=== PATIENT | male | born 1940 | race Caucasian/White ===

== ENCOUNTER 2017-10-19 15:37 | Inpatient (IN) | payer MEDICARE, BC ==
[2017-10-19] MEDS ORDERED: NS 0.9% 1000 ML*IV.FLUID IV ONE (16:11)
[2017-10-19] MEDS ORDERED: cefTRIAXone(*) 1 GM in NS 0.9% 50 ML* 50 ML IVPB ONE (16:14)
--- NOTE | 2017-10-19 17:25 | RAD ---
Indication: Generalized weakness. Nausea and vomiting since yesterday. Comparison: No relevant prior exams available on the [facility] P[facility] for comparison. Technique: Noncontrast CT vertex of skull through foramen magnum. Report: Unremarkable cerebral sulci. Mild prominence of the ventricles and cerebellar fissures reflecting involutional change. Decreased density in the periventricular and subcortical white matter while non-specific is most likely due to chronic microangiopathy. Negative for barajas matter white matter obscuration, intra or extra-axial hemorrhage, or mass effect. Patent basal cisterns. Unremarkable partially visualized orbital contents. No suspicious calvarial or skull base lesion evident. Clear partially visualized paranasal sinuses and partially visualized mastoid air spaces. Unremarkable scalp. IMPRESSION: Mild involutional change and stigmata of chronic small vessel ischemic disease. No acute intracranial process evident.
--- NOTE | 2017-10-19 17:37 | RAD ---
Indication: Weakness, nausea, vomiting since yesterday. Comparison: February 04, 2017 Technique: Sitting AP chest 1715 hours Report: Elevated lung volumes and mild prominence of interstitial markings. No alveolar consolidation concerning for pneumonia, pleural effusion, or pneumothorax. Negative for cardiomegaly. Unremarkable central pulmonary vasculature. Moderately tortuous descending thoracic aorta. Negative for free air beneath the diaphragm. IMPRESSION: Stigmata of obstructive lung disease. No acute pulmonary or cardiac process evident.
[2017-10-19 18:27] LABS: ABS Basophils 0 10^3/ul (0-0.2); ABS Eosinophils 0 10^3/ul (0-0.6); ABS Lymphocytes 0.2 10^3/ul (1.0-4.8); ABS Monocytes 0.2 10^3/ul (0-0.8); ABS Neutrophils 2.9 10^3/ul (1.5-7.7); ABS Nucleated RBC 0 10^3/ul; Eosinophil % 0 % (0-6); Hematocrit 39 % (42-52); Hemoglobin 13.2 g/dl (14.0-18.0); Lymphocyte % 5.1 % (25-47); Mean Corpuscular HGB Conc 34 g/dl (31-36); Mean Corpuscular Hemoglobin 32 pg (27-31); Mean Corpuscular Volume 92 fL (80-94); Mean Platelet Volume 8.2 um3 (7.4-10.4); Nucleated Red Blood Cells % 0; Platelet Count 101 10^3/ul (150-450); Red Cell Distribution Width 14 % (10.5-15); White Blood Count 3.2 10^3/ul (3.5-10.8)
[2017-10-19 18:33] LABS: INR 1.05 (0.77-1.02)
[2017-10-19 18:44] LABS: EGFR Non-African American 60.9 (>60)
[2017-10-19] MEDS ORDERED: Ketorolac INJ* 30 MG/ML 1 ML VIAL IV ONE (20:02)
[2017-10-19 20:32] LABS: Urine Appearance Clear; Urine Blood Negative (Negative); Urine Color Yellow; Urine Ketones Trace (Negative); Urine Protein Negative (Negative); Urine Specific Gravity 1.023 (1.010-1.030); Urine Urobilinogen Negative (Negative)
[2017-10-19] MEDS ORDERED: Ondansetron INJ* 2 MG/ML VIAL IV PRN (20:35)
[2017-10-19] MEDS ORDERED: Calcium Gluconate INJ* 2 GM in NS 0.9% 100 ML* 100 ML IV ONE (20:35)
[2017-10-19] MEDS ORDERED: NS 0.9% 1000 ML* 1,000 ML IV SCH (20:45)
[2017-10-19] MEDS ORDERED: NS 0.9% 1000 ML* 1,000 ML IV ONE (21:14)
[2017-10-19] MEDS ORDERED: Acetaminophen TAB* 325 MG PO ONE (21:14)
[2017-10-19] MEDS ORDERED: Acetaminophen TAB* 325 MG ONE (21:16)
--- NOTE | 2017-10-19 21:22 | ED ---
Nikolas Tomas Stephanie, scribed for Lalit Henry MD on 10/19/17 at 1636 . Complex/Multi-Sys Presentation - HPI Summary HPI Summary: The pt is a 77 y/o M BIBA to the ED with c/o weakness that began last night. Symptoms include RO, unsteady gait, diaphoresis and nausea. The pt urinated on his bed last night. He denies urinary incontinence and states he just couldnt get out of bed to pee. He denies vomiting, fever, neck pain and chills. The pt was bitten by 3 deer ticks 10 days ago: 2 on his chest and 1 on posterior R thigh. The pt has hx of Lyme disease last year and states his symptoms remind him of his Lyme disease last year. - History Of Current Complaint Chief Complaint: EDNauseaVomitDiarrh Time Seen by Provider: 10/19/17 15:58 Hx Obtained From: Patient Onset/Duration: Gradual Onset, Lasting Days - 1, Still Present Timing: Constant Severity Currently: Severe Associated Signs And Symptoms: Positive: Weakness, Headache, Nausea. Negative: Vomiting - Allergies/Home Medications Allergies/Adverse Reactions: Allergies Allergy/AdvReac Type Severity Reaction Status Date / Time No Known Allergies Allergy Verified 06/28/17 12:08 Home Medications: Home Medications Atorvastatin* [Lipitor*] 10 mg PO DAILY 10/19/17 [History Confirmed 10/19/17] BuPROPion XL* [Bupropion XL*] 300 mg PO QAM 10/19/17 [History Confirmed 10/19/17 ] Citalopram TAB* [CeleXA TAB*] 20 mg PO DAILY 10/19/17 [History Confirmed ] GuaiFENesin DM* [Robitussin DM*] 5 ml PO Q12H PRN 10/19/17 [History Confirmed ] Ibuprofen TAB* [Motrin TAB* 600 MG] 600 mg PO TID WITH MEALS PRN 10/19/17 [ History Confirmed 10/19/17] Multivitamins/Minerals TAB* [Theragran/minerals TAB*] 1 tab PO DAILY 10/19/17 [ History Confirmed 10/19/17] Mcnabb-3 Fatty Acids (Nf) [Fish Oil (NF)] 1,000 mg PO DAILY 10/19/17 [History Confirmed 10/19/17] PMH/Surg Hx/FS Hx/Imm Hx Endocrine/Hematology History: Denies: Hx Bone Marrow Disease, Hx Diabetes, Hx Thyroid Disease, Hx Anemia Cardiovascular History: Denies: Hx Angina, Hx Cardiomegaly, Hx Congestive Heart Failure, Hx Coronary Artery Disease, Hx Hypertension, Hx Pacemaker/ICD, Hx Peripheral Vascular Disease, Hx Rheumatic Fever, Hx Valvular Heart Disease, Other Cardiovascular Problems/Disorders Respiratory History: Denies: Hx Asthma, Hx Pulmonary Edema, Hx Pulmonary Embolism, Hx Sleep Apnea , Other Respiratory Problems/Disorders GI History: Denies: Hx Cirrhosis, Hx Crohn's Disease, Hx Gastroesophageal Reflux Disease , Hx Hiatal Hernia, Hx Irritable Bowel, Hx Jaundice, Hx Ulcer, Other GI Disorders History: Reports: Hx Kidney Stones - hx, Other Problems/Disorders - slow urine stream @ night Denies: Hx Kidney Infection, Hx Renal Disease Musculoskeletal History: Denies: Hx Arthritis, Hx Bursitis, Hx Tendonitis, Other Musculoskeletal History Sensory History: Reports: Hx Contacts or Glasses Denies: Hx Cataracts, Hx Glaucoma, Hx Hearing Aid Opthamlomology History: Reports: Hx Contacts or Glasses Denies: Hx Cataracts, Hx Glaucoma Neurological History: Reports: Hx Headaches Denies: Hx Migraine, Hx Seizures, Other Neuro Impairments/Disorders Psychiatric History: Denies: Hx Anxiety, Hx Depression, Hx Panic Disorder - Cancer History Hx Chemotherapy: No - Surgical History Surgery Procedure, Year, and Place: Tonsils. KIDNEY STONES. BILATERAL CATARACTS Hx Anesthesia Reactions: No Infectious Disease History: No Infectious Disease History: Denies: Hx Hepatitis, Traveled Outside the [place] in Last 30 Days - Family History Known Family History: Negative: Renal Disease - Social History Occupation: Retired Lives: Assisted Living Alcohol Use: None Hx Substance Use: No Substance Use Type: Reports: None Hx Tobacco Use: No Smoking Status (MU): Never Smoked Tobacco Review of Systems Positive: Skin Diaphoresis. Negative: Fever, Chills Positive: Nausea. Negative: Vomiting Negative: incontinence Musculoskeletal: Negative - neck pain Neurological: Other - unsteady gait Positive: Headache, Weakness All Other Systems Reviewed And Are Negative: Yes Physical Exam - Summary Physical Exam Summary: General: Moderately ill-appearing, no pain distress Skin: warm, color reflects adequate perfusion, dry, 2 tick bites on chest, one tick bite now scabbed on R posterior LE, no rash Head: normal Eyes: EOMI, BALDEV ENT: oral mucosa dry Neck: supple, nontender Respiratory: CTA, breath sounds present Cardiovascular: RRR Abdomen: soft, nontender Bowel: present Musculoskeletal: normal, strength/ROM intact Neurological: normal, sensory/motor intact, A&O x3, no focal or neurological deficit Psychological: affect/mood appropriate Triage Information Reviewed: Yes Vital Signs On Initial Exam: Initial Vitals Temp Pulse Resp BP Pulse Ox 99.8 F 64 12 99/44 90 10/19/17 15:48 10/19/17 15:48 10/19/17 15:48 10/19/17 15:48 10/19/17 15:48 Vital Signs Reviewed: Yes Diagnostics - Vital Signs Vital Signs Temp Pulse Resp BP Pulse Ox 10/19/17 15:48 99.8 F 64 12 99/44 90 - Laboratory Lab Results: Lab Results 10/19/17 10/19/17 10/19/17 Range/Units 18:17 18:17 18:18 WBC 3.2 L (3.5-10.8) 10^3/ul RBC 4.20 (4.0-5.4) 10^6/ul Hgb 13.2 L (14.0-18.0) g/dl Hct 39 L (42-52) % MCV 92 (80-94) fL MCH 32 H (27-31) pg MCHC 34 (31-36) g/dl RDW 14 (10.5-15) % Plt Count 101 L (150-450) 10^3/ul MPV 8.2 (7.4-10.4) um3 Neut % (Auto) 88.0 H (38-83) % Lymph % (Auto) 5.1 L (25-47) % [place] % (Auto) 6.6 (0-7) % Eos % (Auto) 0 (0-6) % Baso % (Auto) 0.3 (0-2) % Absolute Neuts (auto) 2.9 (1.5-7.7) 10^3/ul Absolute Lymphs (auto) 0.2 L (1.0-4.8) 10^3/ul Absolute Monos (auto) 0.2 (0-0.8) 10^3/ul Absolute Eos (auto) 0 (0-0.6) 10^3/ul Absolute Basos (auto) 0 (0-0.2) 10^3/ul Absolute Nucleated RBC 0 10^3/ul Nucleated RBC % 0 INR (Anticoag Therapy) 1.05 H (0.77-1.02) APTT 24.1 L (26.0-36.3) seconds Sodium (139-145) mmol/L Potassium (3.5-5.0) mmol/L Chloride (101-111) mmol/L Carbon Dioxide (22-32) mmol/L Anion Gap (2-11) mmol/L BUN (6-24) mg/dL Creatinine (0.67-1.17) mg/dL Est GFR ( Amer) (>60) Est GFR (Non-Af Amer) (>60) BUN/Creatinine Ratio (8-20) Glucose (70-100) mg/dL Lactic Acid (0.5-2.0) mmol/L Calcium (8.6-10.3) mg/dL Total Bilirubin (0.2-1.0) mg/dL AST (13-39) U/L ALT (7-52) U/L Alkaline Phosphatase (34-104) U/L Troponin I (<0.04) ng/mL C-Reactive Protein (< 5.00) mg/L B-Natriuretic Peptide ( - 100) pg/mL Total Protein (6.4-8.9) g/dL Albumin (3.2-5.2) g/dL Globulin (2-4) g/dL Albumin/Globulin Ratio (1-3) Lipase (11.0-82.0) U/L Procalcitonin 0.2 (<0.6) ng/mL Urine Color Urine Appearance Urine pH (5-9) Ur Specific Lester (1.010-1.030) Urine Protein (Negative) Urine Ketones (Negative) Urine Blood (Negative) Urine Nitrate (Negative) Urine Bilirubin (Negative) Urine Urobilinogen (Negative) Ur Leukocyte Esterase (Negative) Urine WBC (Auto) (Absent) Urine RBC (Auto) (Absent) Urine Bacteria (Absent) Urine Glucose (Negative) 10/19/17 10/19/17 10/19/17 Range/Units 18:18 18:18 18:18 WBC (3.5-10.8) 10^3/ul RBC (4.0-5.4) 10^6/ul Hgb (14.0-18.0) g/dl Hct (42-52) % MCV (80-94) fL MCH (27-31) pg MCHC (31-36) g/dl RDW (10.5-15) % Plt Count (150-450) 10^3/ul MPV (7.4-10.4) um3 Neut % (Auto) (38-83) % Lymph % (Auto) (25-47) % [place] % (Auto) (0-7) % Eos % (Auto) (0-6) % Baso % (Auto) (0-2) % Absolute Neuts (auto) (1.5-7.7) 10^3/ul Absolute Lymphs (auto) (1.0-4.8) 10^3/ul Absolute Monos (auto) (0-0.8) 10^3/ul Absolute Eos (auto) (0-0.6) 10^3/ul Absolute Basos (auto) (0-0.2) 10^3/ul Absolute Nucleated RBC 10^3/ul Nucleated RBC % INR (Anticoag Therapy) (0.77-1.02) APTT (26.0-36.3) seconds Sodium 137 L (139-145) mmol/L Potassium 3.7 (3.5-5.0) mmol/L Chloride 105 (101-111) mmol/L Carbon Dioxide 25 (22-32) mmol/L Anion Gap 7 (2-11) mmol/L BUN 15 (6-24) mg/dL Creatinine 1.16 (0.67-1.17) mg/dL Est GFR ( Amer) 78.3 (>60) Est GFR (Non-Af Amer) 60.9 (>60) BUN/Creatinine Ratio 12.9 (8-20) Glucose 116 H (70-100) mg/dL Lactic Acid 0.8 (0.5-2.0) mmol/L Calcium 7.7 L (8.6-10.3) mg/dL Total Bilirubin 0.70 (0.2-1.0) mg/dL AST 12 L (13-39) U/L ALT 11 (7-52) U/L Alkaline Phosphatase 34 (34-104) U/L Troponin I 0.01 (<0.04) ng/mL C-Reactive Protein 22.14 H (< 5.00) mg/L B-Natriuretic Peptide 121 H ( - 100) pg/mL Total Protein 5.3 L (6.4-8.9) g/dL Albumin 3.4 (3.2-5.2) g/dL Globulin 1.9 L (2-4) g/dL Albumin/Globulin Ratio 1.8 (1-3) Lipase 12 (11.0-82.0) U/L Procalcitonin (<0.6) ng/mL Urine Color Urine Appearance Urine pH (5-9) Ur Specific Lester (1.010-1.030) Urine Protein (Negative) Urine Ketones (Negative) Urine Blood (Negative) Urine Nitrate (Negative) Urine Bilirubin (Negative) Urine Urobilinogen (Negative) Ur Leukocyte Esterase (Negative) Urine WBC (Auto) (Absent) Urine RBC (Auto) (Absent) Urine Bacteria (Absent) Urine Glucose (Negative) 10/19/17 10/19/17 Range/Units 20:00 20:15 WBC (3.5-10.8) 10^3/ul RBC (4.0-5.4) 10^6/ul Hgb (14.0-18.0) g/dl Hct (42-52) % MCV (80-94) fL MCH (27-31) pg MCHC (31-36) g/dl RDW (10.5-15) % Plt Count (150-450) 10^3/ul MPV (7.4-10.4) um3 Neut % (Auto) (38-83) % Lymph % (Auto) (25-47) % [place] % (Auto) (0-7) % Eos % (Auto) (0-6) % Baso % (Auto) (0-2) % Absolute Neuts (auto) (1.5-7.7) 10^3/ul Absolute Lymphs (auto) (1.0-4.8) 10^3/ul Absolute Monos (auto) (0-0.8) 10^3/ul Absolute Eos (auto) (0-0.6) 10^3/ul Absolute Basos (auto) (0-0.2) 10^3/ul Absolute Nucleated RBC 10^3/ul Nucleated RBC % INR (Anticoag Therapy) (0.77-1.02) APTT (26.0-36.3) seconds Sodium (139-145) mmol/L Potassium (3.5-5.0) mmol/L Chloride (101-111) mmol/L Carbon Dioxide (22-32) mmol/L Anion Gap (2-11) mmol/L BUN (6-24) mg/dL Creatinine (0.67-1.17) mg/dL Est GFR ( Amer) (>60) Est GFR (Non-Af Amer) (>60) BUN/Creatinine Ratio (8-20) Glucose (70-100) mg/dL Lactic Acid 0.9 (0.5-2.0) mmol/L Calcium (8.6-10.3) mg/dL Total Bilirubin (0.2-1.0) mg/dL AST (13-39) U/L ALT (7-52) U/L Alkaline Phosphatase (34-104) U/L Troponin I (<0.04) ng/mL C-Reactive Protein (< 5.00) mg/L B-Natriuretic Peptide ( - 100) pg/mL Total Protein (6.4-8.9) g/dL Albumin (3.2-5.2) g/dL Globulin (2-4) g/dL Albumin/Globulin Ratio (1-3) Lipase (11.0-82.0) U/L Procalcitonin (<0.6) ng/mL Urine Color Yellow Urine Appearance Clear Urine pH 6.0 (5-9) Ur Specific Lester 1.023 (1.010-1.030) Urine Protein Negative (Negative) Urine Ketones Trace A (Negative) Urine Blood Negative (Negative) Urine Nitrate Negative (Negative) Urine Bilirubin Negative (Negative) Urine Urobilinogen Negative (Negative) Ur Leukocyte Esterase Trace A (Negative) Urine WBC (Auto) Trace(0-5/hpf) (Absent) Urine RBC (Auto) Trace(0-2/hpf) (Absent) Urine Bacteria Absent (Absent) Urine Glucose Negative (Negative) Result Diagrams: 10/19/17 18:17 10/19/17 18:18 Lab Statement: Any lab studies that have been ordered have been reviewed, and results considered in the medical decision making process. - Radiology CXR Xray Interpretation: No Acute Changes Radiology Interpretation Completed By: Radiologist - Stigmata of obstructive lung disease. No acute pulmonary or cardiac process evident. ED physician has reviewed this report. - CT Brain CT Interpretation: No Acute Changes CT Interpretation Completed By: Radiologist - Mild involutional change and stigmata of chronic small vessel ischemic disease. No acute intracranial process evident. ED physician has reviewed this report. - EKG 16:34 Cardiac Rate: NL EKG Rhythm: Sinus Rhythm - [address] Segment: Normal Ectopy: None EKG Interpretation: RBBB Complex Multi-Symp Course/Dx Course Of Treatment: ADMIT HOSPITALIST - Diagnoses Provider Diagnoses: Febrile illness, Sepsis - Physician Notifications Discussed Care Of Patient With: Almita Finney Time Discussed With Above Provider: 19:54 Instructed by Provider To: Admit As Inpatient - Critical Care Time Critical Care Time: 30-74 min Discharge - Sign-Out/Discharge Documenting (check all that apply): Discharge/Admit/Transfer - Discharge Plan Condition: Fair Disposition: [facility]MITTED TO [facility] - Billing Disposition and Condition Condition: FAIR [place] [place] The documentation as recorded by the Nikolas burton Stephanie accurately reflects the service I personally performed and the decisions made by me, Lalit Henry MD.
[2017-10-19] MEDS: DOXYcycline IV* 100 MG in NS 0.9% 250 ML* 250 ML IVPB SCH (23:26)
[2017-10-19] MEDS ORDERED: Magnesium Sulfate 2 GM IV* 2 GM/50 ML BAG IVPB ONE (23:39)
[2017-10-19] MEDS: Heparin VIAL(*) 5000 UNITS/ML VIAL (FIVE THOUSAND) SUBCUT SCH (23:50)
[2017-10-20 00:52] LABS: EGFR Non-African American 66.8 (>60)
[2017-10-20] MEDS ORDERED: Calcium Gluconate INJ* 1 GM in NS 0.9% 100 ML* 100 ML IVPB ONE (01:14)
[2017-10-20] MEDS ORDERED: PROCHLORPERAZINE INJ 5 MG/ML 2 ML VIAL ONE (05:38)
[2017-10-20] MEDS: PROCHLORPERAZINE INJ 5 MG/ML 2 ML VIAL IV PRN (05:40)
[2017-10-20] MEDS ORDERED: Ondansetron 40 MG VIAL* 2 MG/ML 20 ML VIAL IV PRN (06:00)
[2017-10-20] MEDS: Heparin VIAL(*) 5000 UNITS/ML VIAL (FIVE THOUSAND) SUBCUT SCH ×3 (06:02→20:18)
--- NOTE | 2017-10-20 06:42 | HP ---
CC: Dr. Lobo; Dr. Bourne * HISTORY AND PHYSICAL: DATE OF ADMISSION: 10/19/17 PRIMARY CARE PROVIDER: Dr. Lobo. ATTENDING PHYSICIAN WHILE IN THE HOSPITAL: Dr. Almita Finney * (report dictated by Damien Mack NP). CHIEF COMPLAINT: 1. Weakness. 2. Aching all over. HISTORY OF PRESENTING ILLNESS: Mr. Ramos is a 77-year-old male patient. He carries a history of depression, nephrolithiasis. He has had lyme disease in the past, hyperlipidemia and vertigo. He comes into the ER today. Since the last 24 hours, he developed progressive worsening weakness to the point where he could not get out of bed even to urinate. He was just too weak to get up. He had been having chills and fevers. He had been feeling nauseated. He did not vomit. He said he had lower abdominal discomfort near his bladder and up in the suprapubic area. He does admit to having chills. He denies any chest pain or shortness of breath. No URI symptoms. He says he has not noticed any rashes. He does admit to having 3 ticks on him about 10 days ago when he was clearing some property that he and his were able to remove. He has had again lyme in the past. He denies any visual disturbances. No headaches currently. He denies having any neck pain or neck stiffness. He came into the ER today. There was concern because he was noted to be leukopenic and his platelets were little low around 100,000. There was concern for possible underlying infection contributing to the weakness and we were asked to evaluate for admission. PAST MEDICAL HISTORY: Significant for: 1. Depression. 2. Nephrolithiasis. 3. Lyme disease. 4. Hyperlipidemia. 5. Vertigo. PAST SURGICAL HISTORY: The patient has had cataract extraction. HOME MEDICATIONS: Include: 1. Robitussin 5 cc every 12 hours as needed. 2. [place]-3 fatty acids 1000 mg p.o. daily. 3. Multivitamin 1 tablet daily. 4. Celexa 20 mg p.o. daily. 5. Bupropion 300 mg p.o. daily. 6. Ibuprofen 600 mg p.o. t.i.d. with meals as needed. 7. Lipitor 10 mg p.o. daily. ALLERGIES TO MEDICATIONS: Include no known drug allergies. FAMILY HISTORY: Mother had a history of breast cancer. Father had a history of heart disease. SOCIAL HISTORY: He does not smoke. He rarely drinks alcohol. Surrogate decision maker is his . REVIEW OF SYSTEMS: There is no documented fever. Does admit to having chills. He denies any significant weight change. There was no double vision. He denies having any ear discharge. There is no rhinorrhea. He denied any sore throat. No thyroid enlargement. Denies having any chest pain. There was no orthopnea. No nocturnal dyspnea. There was no abdominal pain. There was nausea. No vomiting. No dysuria. There was no frequency. No seizure. No loss of consciousness. No pruritus and no skin ulcerations. Review of 14 systems completed, all others negative. PHYSICAL EXAMINATION GENERAL: At this time, Mr. Ramos is a 77-year-old male patient. He is sitting in the ED stretcher. He does not appear to be in any acute distress. VITAL SIGNS: Blood pressure 109/60, pulse 75, respirations 24, O2 sat 94% on room air, temperature 99.8. HEENT: Head is atraumatic and normocephalic. Eyes: EOMs are intact. Sclerae are anicteric and not pale. Throat: Oral mucosa appears to be dry. No oropharyngeal erythema. NECK: Supple. LUNGS: Clear to auscultation bilaterally. No wheezes, rales, or rhonchi. HEART: Sounds S1, S2. Regular rate and rhythm. No murmurs, rubs, or gallops. ABDOMEN: Soft, flat, nontender. Bowel sounds were present. EXTREMITIES: Pulses were 2+ throughout. He is moving all 4 extremities with 5/ 5 strength. NEUROLOGICAL: He is awake, alert, he is oriented x3. Business Area Director were equal. Tongue midline. He had no gross focal deficits. SKIN: Intact. I did not appreciate any rashes. DIAGNOSTIC STUDIES/LABORATORY DATA: Today revealed WBC of 3.2, RBC of 4.20, hemoglobin of 13.2, hematocrit of 39, and platelet count of 101. His INR was 1.05, PTT of 24.1. Sodium is 137, potassium is 3.7, chloride 105, bicarb 25, BUN 15, creatinine 1.16, glucose 116, lactate 0.8, calcium 7.7. Total bili 0.7 , AST 12, ALT 11, alk phos 34. Troponin 0.04. CRP of 22. BNP 121. Albumin was 3.4. Lipase normal. Procalcitonin 0.2. Urine showed trace ketones, trace leukocyte esterase. He had a brain CT obtained today, impression: Mild involutional change and stigmata of chronic small vessel ischemic disease, no acute intracranial process evident. He had an EKG obtained today showing a normal sinus rhythm with a right bundle-branch block, rate of 72, no ST elevations or T-wave inversions. Last EKG I have is from 7 years ago showed a sinus bradycardia at a rate of 59, right bundle- branch block was not present at that point. Chest x -ray obtained today showed stigmata of obstructive lung disease. No acute pulmonary or cardiac process evident. Old medical records were reviewed. ASSESSMENT AND PLAN: Mr. Ramos is a 77-year-old male patient coming into the emergency department today with complaints of weakness, fatigue, found to be leukopenic and thrombocytopenic. We were asked to evaluate for admission. He will be admitted under observation status for: 1. Weakness. Again, I am concerned he might have underlying either viral infection or possibly lyme infection. Lyme serology has been sent. Blood cultures have been sent. He does have signs of systemic inflammatory response syndrome. His respiratory rates are in the mid 20s. In addition to this, he is leukopenic. So, he did get full 30 cc/kg fluid. I will go ahead and put him on doxycycline. We will get lyme serology, panculture him, check flu swab, and I did touch base with ID. For the time being, I will put him on doxycycline given the recent tick exposure. 2. Hypocalcemia. I am going to get an ionized calcium and then if this is low , I will replace and also will send off PTH, vitamin D, magnesium levels, calcitriol, amylase, phos as well. 3. Depression. Continue medications as prescribed. 4. Nephrolithiasis, not an active issue. 5. Hyperlipidemia. Continue statin therapy. 6. Vertigo. He is not having any active issues. We will continue to monitor. 7. DVT prophylaxis: He will be placed on heparin subcu. 8. Fluids, electrolytes, nutrition. He can have a regular diet. 9. Code status. Full code. TIME SPENT: Time spent on admission was 60 minutes; greater than half the time was spent [id number] with the patient obtaining my history and physical, other half the time was spent going over the plan of care with the patient and implementing plan of care. I did discuss the plan of care with my attending, Dr. Finney; she is in agreement. DAMIEN MACK NP [id number]/CPS #: [id number] YOLANDA
[2017-10-20 07:35] LABS: Hematocrit 38 % (42-52); Hemoglobin 13.1 g/dl (14.0-18.0); Mean Corpuscular HGB Conc 34 g/dl (31-36); Mean Corpuscular Hemoglobin 32 pg (27-31); Mean Corpuscular Volume 92 fL (80-94); Mean Platelet Volume 8.4 um3 (7.4-10.4); Platelet Count 91 10^3/ul (150-450); Red Blood Count 4.13 10^6/ul (4.0-5.4); Red Cell Distribution Width 14 % (10.5-15); White Blood Count 2.7 10^3/ul (3.5-10.8)
[2017-10-20 07:40] LABS: INR 1.12 (0.77-1.02)
[2017-10-20 07:48] LABS: EGFR Non-African American 70.6 (>60)
[2017-10-20] MEDS: BuPROPion XL* 300 MG TAB.XL PO SCH (07:50)
[2017-10-20] MEDS: Citalopram TAB* 20 MG PO SCH (07:50)
[2017-10-20] MEDS: Atorvastatin* 10 MG TAB PO SCH (07:50)
[2017-10-20] MEDS: Acetaminophen TAB* 325 MG PO PRN ×2 (07:50→20:17)
[2017-10-20] MEDS: NS 0.9% 1000 ML* 1,000 ML IV SCH ×3 (07:51→14:03)
[2017-10-20 08:12] LABS: ABS Basophils 0 10^3/ul (0-0.2); ABS Eosinophils 0 10^3/ul (0-0.6); ABS Lymphocytes 0.2 10^3/ul (1.0-4.8); ABS Monocytes 0.2 10^3/ul (0-0.8); ABS Neutrophils 2.4 10^3/ul (1.5-7.7); ABS Nucleated RBC 0 10^3/ul; Eosinophil % 0 % (0-6); Lymphocyte % 6.7 % (25-47); Nucleated Red Blood Cells % 0
[2017-10-20] MEDS ORDERED: Ibuprofen TAB* 600 MG PO PRN (08:21)
[2017-10-20] MEDS: DOXYcycline IV* 100 MG in NS 0.9% 250 ML* 250 ML IVPB SCH ×2 (09:24→21:59)
[2017-10-20] MEDS: traMADol TAB* 50 MG PO PRN ×2 (09:24→20:17)
--- NOTE | 2017-10-20 13:03 | PN ---
Subjective Date of Service: 10/20/17 Interval History: Pt c/o b/l leg weakness, but slowly improving.Fever up to 102.3 Apart for c/l distal LE's pain, no other pain reported Objective Active Medications: Acetaminophen (Tylenol Tab*) 650 mg PO Q4H PRN PRN Reason: FEVER/PAIN Last Admin: 10/20/17 07:50 Dose: 650 mg Atorvastatin Calcium (Lipitor*) 10 mg PO DAILY [facility] Last Admin: 10/20/17 07:50 Dose: 10 mg Bupropion HCl (Bupropion Xl*) 300 mg PO QAM [facility] Last Admin: 10/20/17 07:50 Dose: 300 mg Citalopram Hydrobromide (Celexa Tab*) 20 mg PO DAILY [facility] Last Admin: 10/20/17 07:50 Dose: 20 mg Heparin Sodium (Porcine) (Heparin Vial(*)) 5,000 units SUBCUT Q8HR [facility] Last Admin: 10/20/17 06:02 Dose: 5,000 units Doxycycline Hyclate 100 mg/ (Sodium Chloride) 250 mls @ 250 mls/hr IVPB Q12H [facility] Last Admin: 10/20/17 09:24 Dose: 250 mls/hr Sodium Chloride (Ns 0.9% 1000 Ml*) 1,000 mls @ 150 mls/hr IV PER RATE [facility] Last Admin: 10/20/17 07:51 Dose: 150 mls/hr Ibuprofen (Motrin Tab*) 600 mg PO Q6H PRN PRN Reason: PAIN Ondansetron HCl (Zofran Inj*) 4 mg IV Q6H PRN PRN Reason: NAUSEA Prednisone (Deltasone Tab*) 40 mg PO DAILY [facility] Prochlorperazine Edisylate (Compazine Inj*) 10 mg IV Q6H PRN PRN Reason: NAUSEA/VOMITING Last Admin: 10/20/17 05:40 Dose: 10 mg Tramadol HCl (Ultram*) 50 mg PO Q6H PRN PRN Reason: PAIN Last Admin: 10/20/17 09:24 Dose: 50 mg Vital Signs - 8 hr 10/20/17 10/20/17 10/20/17 09:23 09:24 11:43 Temperature 99.4 F 98.8 F Pulse Rate 56 Respiratory 20 18 Rate Blood Pressure 89/45 (mmHg) O2 Sat by Pulse 93 Oximetry 10/20/17 10/20/17 12:00 12:12 Temperature Pulse Rate Respiratory 16 Rate Blood Pressure 104/65 (mmHg) O2 Sat by Pulse Oximetry Oxygen Devices in Use Now: Nasal Cannula Appearance: 77 yo m in nAD, aAOx3 Eyes: No Scleral Icterus, PERRLA Ears/Nose/Mouth/Throat: NL Teeth, Lips, Gums, Mucous Membranes Moist Neck: NL Appearance and Movements; NL JVP, Trachea Midline Respiratory: Symmetrical Chest Expansion and Respiratory Effort, Clear to Auscultation Cardiovascular: NL Sounds; No Murmurs; No JVD Abdominal: NL Sounds; No Tenderness; No Distention, No Hepatosplenomegaly Lymphatic: No Cervical Adenopathy Extremities: No Edema, No Clubbing, Cyanosis Skin: No Rash or Ulcers, No Nodules or Sclerosis Neurological: Alert and Oriented x 3, - - generalized weakness, no focal deficit Result Diagrams: 10/20/17 07:04 10/20/17 07:04 Additional Lab and Data: Lab Results 10/19/17 10/19/17 10/19/17 Range/Units 18:17 18:17 18:18 WBC 3.2 L (3.5-10.8) 10^3/ul RBC 4.20 (4.0-5.4) 10^6/ul Hgb 13.2 L (14.0-18.0) g/dl Hct 39 L (42-52) % MCV 92 (80-94) fL MCH 32 H (27-31) pg MCHC 34 (31-36) g/dl RDW 14 (10.5-15) % Plt Count 101 L (150-450) 10^3/ul MPV 8.2 (7.4-10.4) um3 Neut % (Auto) 88.0 H (38-83) % Lymph % (Auto) 5.1 L (25-47) % [place] % (Auto) 6.6 (0-7) % Eos % (Auto) 0 (0-6) % Baso % (Auto) 0.3 (0-2) % Absolute Neuts (auto) 2.9 (1.5-7.7) 10^3/ul Absolute Lymphs (auto) 0.2 L (1.0-4.8) 10^3/ul Absolute Monos (auto) 0.2 (0-0.8) 10^3/ul Absolute Eos (auto) 0 (0-0.6) 10^3/ul Absolute Basos (auto) 0 (0-0.2) 10^3/ul Absolute Nucleated RBC 0 10^3/ul Nucleated RBC % 0 INR (Anticoag Therapy) 1.05 H (0.77-1.02) APTT 24.1 L (26.0-36.3) seconds Sodium (139-145) mmol/L Potassium (3.5-5.0) mmol/L Chloride (101-111) mmol/L Carbon Dioxide (22-32) mmol/L Anion Gap (2-11) mmol/L BUN (6-24) mg/dL Creatinine (0.67-1.17) mg/dL Est GFR ( Amer) (>60) Est GFR (Non-Af Amer) (>60) BUN/Creatinine Ratio (8-20) Glucose (70-100) mg/dL Lactic Acid (0.5-2.0) mmol/L Calcium (8.6-10.3) mg/dL Total Bilirubin (0.2-1.0) mg/dL AST (13-39) U/L ALT (7-52) U/L Alkaline Phosphatase (34-104) U/L Troponin I (<0.04) ng/mL C-Reactive Protein (< 5.00) mg/L B-Natriuretic Peptide ( - 100) pg/mL Total Protein (6.4-8.9) g/dL Albumin (3.2-5.2) g/dL Globulin (2-4) g/dL Albumin/Globulin Ratio (1-3) Lipase (11.0-82.0) U/L Procalcitonin 0.2 (<0.6) ng/mL Urine Color Urine Appearance Urine pH (5-9) Ur Specific [place] (1.010-1.030) Urine Protein (Negative) Urine Ketones (Negative) Urine Blood (Negative) Urine Nitrate (Negative) Urine Bilirubin (Negative) Urine Urobilinogen (Negative) Ur Leukocyte Esterase (Negative) Urine WBC (Auto) (Absent) Urine RBC (Auto) (Absent) Urine Bacteria (Absent) Urine Glucose (Negative) 10/19/17 10/19/17 10/19/17 Range/Units 18:18 18:18 18:18 WBC (3.5-10.8) 10^3/ul RBC (4.0-5.4) 10^6/ul Hgb (14.0-18.0) g/dl Hct (42-52) % MCV (80-94) fL MCH (27-31) pg MCHC (31-36) g/dl RDW (10.5-15) % Plt Count (150-450) 10^3/ul MPV (7.4-10.4) um3 Neut % (Auto) (38-83) % Lymph % (Auto) (25-47) % [place] % (Auto) (0-7) % Eos % (Auto) (0-6) % Baso % (Auto) (0-2) % Absolute Neuts (auto) (1.5-7.7) 10^3/ul Absolute Lymphs (auto) (1.0-4.8) 10^3/ul Absolute Monos (auto) (0-0.8) 10^3/ul Absolute Eos (auto) (0-0.6) 10^3/ul Absolute Basos (auto) (0-0.2) 10^3/ul Absolute Nucleated RBC 10^3/ul Nucleated RBC % INR (Anticoag Therapy) (0.77-1.02) APTT (26.0-36.3) seconds Sodium 137 L (139-145) mmol/L Potassium 3.7 (3.5-5.0) mmol/L Chloride 105 (101-111) mmol/L Carbon Dioxide 25 (22-32) mmol/L Anion Gap 7 (2-11) mmol/L BUN 15 (6-24) mg/dL Creatinine 1.16 (0.67-1.17) mg/dL Est GFR ( Amer) 78.3 (>60) Est GFR (Non-Af Amer) 60.9 (>60) BUN/Creatinine Ratio 12.9 (8-20) Glucose 116 H (70-100) mg/dL Lactic Acid 0.8 (0.5-2.0) mmol/L Calcium 7.7 L (8.6-10.3) mg/dL Total Bilirubin 0.70 (0.2-1.0) mg/dL AST 12 L (13-39) U/L ALT 11 (7-52) U/L Alkaline Phosphatase 34 (34-104) U/L Troponin I 0.01 (<0.04) ng/mL C-Reactive Protein 22.14 H (< 5.00) mg/L B-Natriuretic Peptide 121 H ( - 100) pg/mL Total Protein 5.3 L (6.4-8.9) g/dL Albumin 3.4 (3.2-5.2) g/dL Globulin 1.9 L (2-4) g/dL Albumin/Globulin Ratio 1.8 (1-3) Lipase 12 (11.0-82.0) U/L Procalcitonin (<0.6) ng/mL Urine Color Urine Appearance Urine pH (5-9) Ur Specific [place] (1.010-1.030) Urine Protein (Negative) Urine Ketones (Negative) Urine Blood (Negative) Urine Nitrate (Negative) Urine Bilirubin (Negative) Urine Urobilinogen (Negative) Ur Leukocyte Esterase (Negative) Urine WBC (Auto) (Absent) Urine RBC (Auto) (Absent) Urine Bacteria (Absent) Urine Glucose (Negative) 10/19/17 10/19/17 Range/Units 20:00 20:15 WBC (3.5-10.8) 10^3/ul RBC (4.0-5.4) 10^6/ul Hgb (14.0-18.0) g/dl Hct (42-52) % MCV (80-94) fL MCH (27-31) pg MCHC (31-36) g/dl RDW (10.5-15) % Plt Count (150-450) 10^3/ul MPV (7.4-10.4) um3 Neut % (Auto) (38-83) % Lymph % (Auto) (25-47) % [place] % (Auto) (0-7) % Eos % (Auto) (0-6) % Baso % (Auto) (0-2) % Absolute Neuts (auto) (1.5-7.7) 10^3/ul Absolute Lymphs (auto) (1.0-4.8) 10^3/ul Absolute Monos (auto) (0-0.8) 10^3/ul Absolute Eos (auto) (0-0.6) 10^3/ul Absolute Basos (auto) (0-0.2) 10^3/ul Absolute Nucleated RBC 10^3/ul Nucleated RBC % INR (Anticoag Therapy) (0.77-1.02) APTT (26.0-36.3) seconds Sodium (139-145) mmol/L Potassium (3.5-5.0) mmol/L Chloride (101-111) mmol/L Carbon Dioxide (22-32) mmol/L Anion Gap (2-11) mmol/L BUN (6-24) mg/dL Creatinine (0.67-1.17) mg/dL Est GFR ( Amer) (>60) Est GFR (Non-Af Amer) (>60) BUN/Creatinine Ratio (8-20) Glucose (70-100) mg/dL Lactic Acid 0.9 (0.5-2.0) mmol/L Calcium (8.6-10.3) mg/dL Total Bilirubin (0.2-1.0) mg/dL AST (13-39) U/L ALT (7-52) U/L Alkaline Phosphatase (34-104) U/L Troponin I (<0.04) ng/mL C-Reactive Protein (< 5.00) mg/L B-Natriuretic Peptide ( - 100) pg/mL Total Protein (6.4-8.9) g/dL Albumin (3.2-5.2) g/dL Globulin (2-4) g/dL Albumin/Globulin Ratio (1-3) Lipase (11.0-82.0) U/L Procalcitonin (<0.6) ng/mL Urine Color Yellow Urine Appearance Clear Urine pH 6.0 (5-9) Ur Specific [place] 1.023 (1.010-1.030) Urine Protein Negative (Negative) Urine Ketones Trace A (Negative) Urine Blood Negative (Negative) Urine Nitrate Negative (Negative) Urine Bilirubin Negative (Negative) Urine Urobilinogen Negative (Negative) Ur Leukocyte Esterase Trace A (Negative) Urine WBC (Auto) Trace(0-5/hpf) (Absent) Urine RBC (Auto) Trace(0-2/hpf) (Absent) Urine Bacteria Absent (Absent) Urine Glucose Negative (Negative) Assess/Plan/Problems-Billing Assessment: 77 yo M with h/o PMR(on Prednisone at 10 mg), HTN, Lyme last year presents with fever and leg pain - Patient Problems (1) SIRS (systemic inflammatory response syndrome) Comment: suspect anaplasma, due to leukopenia. Cont doxy. Tick borne disase serology pending. d/W ID (2) PMR (polymyalgia rheumatica) Comment: due to high fever and generalized weakness will place pt on increased dose of steroids. P is afraid of titrating the Prednisone too high. Will start at 40 mg daily and monitor for improvement (3) Thrombocytopenia Comment: mild, due to SIRS, will monitor (4) DVT prophylaxis Comment: HSQ Status and Disposition: OBV changed to inpatient,
[2017-10-20] MEDS: predniSONE TAB* 20 MG PO SCH (13:15)
[2017-10-21] MEDS: NS 0.9% 1000 ML* 1,000 ML IV SCH (03:06)
[2017-10-21] MEDS: Heparin VIAL(*) 5000 UNITS/ML VIAL (FIVE THOUSAND) SUBCUT SCH (05:47)
[2017-10-21 06:37] LABS: ABS Basophils 0 10^3/ul (0-0.2); ABS Eosinophils 0 10^3/ul (0-0.6); ABS Lymphocytes 0.5 10^3/ul (1.0-4.8); ABS Monocytes 0.3 10^3/ul (0-0.8); ABS Neutrophils 2.3 10^3/ul (1.5-7.7); ABS Nucleated RBC 0 10^3/ul; Eosinophil % 0.1 % (0-6); Hematocrit 37 % (42-52); Hemoglobin 12.8 g/dl (14.0-18.0); Lymphocyte % 15.2 % (25-47); Mean Corpuscular HGB Conc 35 g/dl (31-36); Mean Corpuscular Hemoglobin 32 pg (27-31); Mean Corpuscular Volume 92 fL (80-94); Mean Platelet Volume 8.5 um3 (7.4-10.4); Nucleated Red Blood Cells % 0; Platelet Count 78 10^3/ul (150-450); Red Blood Count 4.05 10^6/ul (4.0-5.4); Red Cell Distribution Width 13 % (10.5-15); White Blood Count 3.1 10^3/ul (3.5-10.8)
[2017-10-21 06:49] LABS: EGFR Non-African American 69.8 (>60)
[2017-10-21] MEDS: BuPROPion XL* 300 MG TAB.XL PO SCH (09:13)
[2017-10-21] MEDS: Citalopram TAB* 20 MG PO SCH (09:13)
[2017-10-21] MEDS: predniSONE TAB* 20 MG PO SCH (09:13)
[2017-10-21] MEDS: Atorvastatin* 10 MG TAB PO SCH (09:14)
[2017-10-21] MEDS: DOXYcycline IV* 100 MG in NS 0.9% 250 ML* 250 ML IVPB SCH ×2 (10:50→21:44)
--- NOTE | 2017-10-21 11:51 | PN ---
Subjective Date of Service: 10/21/17 Interval History: Pt feels better. Last fever 24H ago. Ambulated with PT, used a walker and one person assistance. Feels stronger Objective Active Medications: Acetaminophen (Tylenol Tab*) 650 mg PO Q4H PRN PRN Reason: FEVER/PAIN Last Admin: 10/20/17 20:17 Dose: 650 mg Atorvastatin Calcium (Lipitor*) 10 mg PO DAILY [facility] Last Admin: 10/21/17 09:14 Dose: 10 mg Bupropion HCl (Bupropion Xl*) 300 mg PO QAM [facility] Last Admin: 10/21/17 09:13 Dose: 300 mg Citalopram Hydrobromide (Celexa Tab*) 20 mg PO DAILY [facility] Last Admin: 10/21/17 09:13 Dose: 20 mg Doxycycline Hyclate 100 mg/ (Sodium Chloride) 250 mls @ 250 mls/hr IVPB Q12H [facility] Last Admin: 10/21/17 10:50 Dose: 250 mls/hr Sodium Chloride (Ns 0.9% 1000 Ml*) 1,000 mls @ 75 mls/hr IV PER RATE [facility] Last Admin: 10/21/17 03:06 Dose: 75 mls/hr Ibuprofen (Motrin Tab*) 600 mg PO Q6H PRN PRN Reason: PAIN Ondansetron HCl (Zofran Inj*) 4 mg IV Q6H PRN PRN Reason: NAUSEA Prednisone (Deltasone Tab*) 40 mg PO DAILY [facility] Last Admin: 10/21/17 09:13 Dose: 40 mg Prochlorperazine Edisylate (Compazine Inj*) 10 mg IV Q6H PRN PRN Reason: NAUSEA/VOMITING Last Admin: 10/20/17 05:40 Dose: 10 mg Tramadol HCl (Ultram*) 50 mg PO Q6H PRN PRN Reason: PAIN Last Admin: 10/20/17 20:17 Dose: 50 mg Vital Signs - 8 hr 10/21/17 07:30 Temperature 97.4 F Pulse Rate 59 Respiratory 20 Rate Blood Pressure 135/67 (mmHg) O2 Sat by Pulse 93 Oximetry Oxygen Devices in Use Now: None Appearance: 77 yo M in nAd, aAOx3 Eyes: No Scleral Icterus, PERRLA Ears/Nose/Mouth/Throat: NL Teeth, Lips, Gums, Mucous Membranes Moist Neck: NL Appearance and Movements; NL JVP, Trachea Midline Respiratory: Symmetrical Chest Expansion and Respiratory Effort, Clear to Auscultation Cardiovascular: NL Sounds; No Murmurs; No JVD Abdominal: NL Sounds; No Tenderness; No Distention Lymphatic: No Cervical Adenopathy Extremities: No Edema, No Clubbing, Cyanosis Skin: No Rash or Ulcers, No Nodules or Sclerosis Neurological: Alert and Oriented x 3, NL Muscle Strength and Tone Result Diagrams: 10/21/17 06:09 10/21/17 06:09 Additional Lab and Data: Lab Results 10/19/17 10/19/17 10/19/17 Range/Units 18:17 18:17 18:18 WBC 3.2 L (3.5-10.8) 10^3/ul RBC 4.20 (4.0-5.4) 10^6/ul Hgb 13.2 L (14.0-18.0) g/dl Hct 39 L (42-52) % MCV 92 (80-94) fL MCH 32 H (27-31) pg MCHC 34 (31-36) g/dl RDW 14 (10.5-15) % Plt Count 101 L (150-450) 10^3/ul MPV 8.2 (7.4-10.4) um3 Neut % (Auto) 88.0 H (38-83) % Lymph % (Auto) 5.1 L (25-47) % [place] % (Auto) 6.6 (0-7) % Eos % (Auto) 0 (0-6) % Baso % (Auto) 0.3 (0-2) % Absolute Neuts (auto) 2.9 (1.5-7.7) 10^3/ul Absolute Lymphs (auto) 0.2 L (1.0-4.8) 10^3/ul Absolute Monos (auto) 0.2 (0-0.8) 10^3/ul Absolute Eos (auto) 0 (0-0.6) 10^3/ul Absolute Basos (auto) 0 (0-0.2) 10^3/ul Absolute Nucleated RBC 0 10^3/ul Nucleated RBC % 0 INR (Anticoag Therapy) 1.05 H (0.77-1.02) APTT 24.1 L (26.0-36.3) seconds Sodium (139-145) mmol/L Potassium (3.5-5.0) mmol/L Chloride (101-111) mmol/L Carbon Dioxide (22-32) mmol/L Anion Gap (2-11) mmol/L BUN (6-24) mg/dL Creatinine (0.67-1.17) mg/dL Est GFR ( Amer) (>60) Est GFR (Non-Af Amer) (>60) BUN/Creatinine Ratio (8-20) Glucose (70-100) mg/dL Lactic Acid (0.5-2.0) mmol/L Calcium (8.6-10.3) mg/dL Total Bilirubin (0.2-1.0) mg/dL AST (13-39) U/L ALT (7-52) U/L Alkaline Phosphatase (34-104) U/L Troponin I (<0.04) ng/mL C-Reactive Protein (< 5.00) mg/L B-Natriuretic Peptide ( - 100) pg/mL Total Protein (6.4-8.9) g/dL Albumin (3.2-5.2) g/dL Globulin (2-4) g/dL Albumin/Globulin Ratio (1-3) Lipase (11.0-82.0) U/L Procalcitonin 0.2 (<0.6) ng/mL Urine Color Urine Appearance Urine pH (5-9) Ur Specific [place] (1.010-1.030) Urine Protein (Negative) Urine Ketones (Negative) Urine Blood (Negative) Urine Nitrate (Negative) Urine Bilirubin (Negative) Urine Urobilinogen (Negative) Ur Leukocyte Esterase (Negative) Urine WBC (Auto) (Absent) Urine RBC (Auto) (Absent) Urine Bacteria (Absent) Urine Glucose (Negative) 10/19/17 10/19/17 10/19/17 Range/Units 18:18 18:18 18:18 WBC (3.5-10.8) 10^3/ul RBC (4.0-5.4) 10^6/ul Hgb (14.0-18.0) g/dl Hct (42-52) % MCV (80-94) fL MCH (27-31) pg MCHC (31-36) g/dl RDW (10.5-15) % Plt Count (150-450) 10^3/ul MPV (7.4-10.4) um3 Neut % (Auto) (38-83) % Lymph % (Auto) (25-47) % [place] % (Auto) (0-7) % Eos % (Auto) (0-6) % Baso % (Auto) (0-2) % Absolute Neuts (auto) (1.5-7.7) 10^3/ul Absolute Lymphs (auto) (1.0-4.8) 10^3/ul Absolute Monos (auto) (0-0.8) 10^3/ul Absolute Eos (auto) (0-0.6) 10^3/ul Absolute Basos (auto) (0-0.2) 10^3/ul Absolute Nucleated RBC 10^3/ul Nucleated RBC % INR (Anticoag Therapy) (0.77-1.02) APTT (26.0-36.3) seconds Sodium 137 L (139-145) mmol/L Potassium 3.7 (3.5-5.0) mmol/L Chloride 105 (101-111) mmol/L Carbon Dioxide 25 (22-32) mmol/L Anion Gap 7 (2-11) mmol/L BUN 15 (6-24) mg/dL Creatinine 1.16 (0.67-1.17) mg/dL Est GFR ( Amer) 78.3 (>60) Est GFR (Non-Af Amer) 60.9 (>60) BUN/Creatinine Ratio 12.9 (8-20) Glucose 116 H (70-100) mg/dL Lactic Acid 0.8 (0.5-2.0) mmol/L Calcium 7.7 L (8.6-10.3) mg/dL Total Bilirubin 0.70 (0.2-1.0) mg/dL AST 12 L (13-39) U/L ALT 11 (7-52) U/L Alkaline Phosphatase 34 (34-104) U/L Troponin I 0.01 (<0.04) ng/mL C-Reactive Protein 22.14 H (< 5.00) mg/L B-Natriuretic Peptide 121 H ( - 100) pg/mL Total Protein 5.3 L (6.4-8.9) g/dL Albumin 3.4 (3.2-5.2) g/dL Globulin 1.9 L (2-4) g/dL Albumin/Globulin Ratio 1.8 (1-3) Lipase 12 (11.0-82.0) U/L Procalcitonin (<0.6) ng/mL Urine Color Urine Appearance Urine pH (5-9) Ur Specific [place] (1.010-1.030) Urine Protein (Negative) Urine Ketones (Negative) Urine Blood (Negative) Urine Nitrate (Negative) Urine Bilirubin (Negative) Urine Urobilinogen (Negative) Ur Leukocyte Esterase (Negative) Urine WBC (Auto) (Absent) Urine RBC (Auto) (Absent) Urine Bacteria (Absent) Urine Glucose (Negative) 10/19/17 10/19/17 Range/Units 20:00 20:15 WBC (3.5-10.8) 10^3/ul RBC (4.0-5.4) 10^6/ul Hgb (14.0-18.0) g/dl Hct (42-52) % MCV (80-94) fL MCH (27-31) pg MCHC (31-36) g/dl RDW (10.5-15) % Plt Count (150-450) 10^3/ul MPV (7.4-10.4) um3 Neut % (Auto) (38-83) % Lymph % (Auto) (25-47) % [place] % (Auto) (0-7) % Eos % (Auto) (0-6) % Baso % (Auto) (0-2) % Absolute Neuts (auto) (1.5-7.7) 10^3/ul Absolute Lymphs (auto) (1.0-4.8) 10^3/ul Absolute Monos (auto) (0-0.8) 10^3/ul Absolute Eos (auto) (0-0.6) 10^3/ul Absolute Basos (auto) (0-0.2) 10^3/ul Absolute Nucleated RBC 10^3/ul Nucleated RBC % INR (Anticoag Therapy) (0.77-1.02) APTT (26.0-36.3) seconds Sodium (139-145) mmol/L Potassium (3.5-5.0) mmol/L Chloride (101-111) mmol/L Carbon Dioxide (22-32) mmol/L Anion Gap (2-11) mmol/L BUN (6-24) mg/dL Creatinine (0.67-1.17) mg/dL Est GFR ( Amer) (>60) Est GFR (Non-Af Amer) (>60) BUN/Creatinine Ratio (8-20) Glucose (70-100) mg/dL Lactic Acid 0.9 (0.5-2.0) mmol/L Calcium (8.6-10.3) mg/dL Total Bilirubin (0.2-1.0) mg/dL AST (13-39) U/L ALT (7-52) U/L Alkaline Phosphatase (34-104) U/L Troponin I (<0.04) ng/mL C-Reactive Protein (< 5.00) mg/L B-Natriuretic Peptide ( - 100) pg/mL Total Protein (6.4-8.9) g/dL Albumin (3.2-5.2) g/dL Globulin (2-4) g/dL Albumin/Globulin Ratio (1-3) Lipase (11.0-82.0) U/L Procalcitonin (<0.6) ng/mL Urine Color Yellow Urine Appearance Clear Urine pH 6.0 (5-9) Ur Specific [place] 1.023 (1.010-1.030) Urine Protein Negative (Negative) Urine Ketones Trace A (Negative) Urine Blood Negative (Negative) Urine Nitrate Negative (Negative) Urine Bilirubin Negative (Negative) Urine Urobilinogen Negative (Negative) Ur Leukocyte Esterase Trace A (Negative) Urine WBC (Auto) Trace(0-5/hpf) (Absent) Urine RBC (Auto) Trace(0-2/hpf) (Absent) Urine Bacteria Absent (Absent) Urine Glucose Negative (Negative) Assess/Plan/Problems-Billing Assessment: 77 yo M with h/o PMR(on Prednisone at 10 mg), HTN, Lyme last year presents with fever and leg pain - Patient Problems (1) SIRS (systemic inflammatory response syndrome) Comment: suspect anaplasma, due to leukopenia. Cont doxy. Tick borne disase serology pending. d/w ID (2) PMR (polymyalgia rheumatica) Comment: cont Prednisone at an increased dose at 40 mg. (3) Thrombocytopenia Comment: mild, due to SIRS, will monitor (4) DVT prophylaxis Comment: HSQ will be discontinued due to worsening thrombocytopenia Status and Disposition: inpatient due to generalized weakness will cont PT today and plan for d/c tomorrow
[2017-10-21] MEDS: Acetaminophen TAB* 325 MG PO PRN (12:30)
[2017-10-21] MEDS: traMADol TAB* 50 MG PO PRN (12:30)
--- NOTE | 2017-10-21 14:46 | CONS ---
CONSULTATION REPORT: DATE OF CONSULT: 10/21/17 REQUESTING PHYSICIAN: Dr. Morales. CONSULTING SERVICE: Infectious Disease. REASON FOR CONSULT: Fever. IMPRESSION: 1. Sudden onset fever, extreme fatigue, myalgia, leukopenia, thrombocytopenia, recent tick exposure in [facility]. The differential diagnosis include the usual cause of bacterial sepsis; however, at this point the blood cultures are negative as is the urine culture, viral etiologies including influenza, however that was negative, other considerations include acute CMV infection. Versus tick borne infection. At this time of year, in this area would include anaplasmosis in [facility] where he had tick bites and where there may be [place] ticks, ehrlichiosis consideration as well. 2. Polymyalgia rheumatica on chronic corticosteroid therapy which is currently tapering. PLAN/RECOMMENDATIONS: Continue doxycycline 100 mg IV every 12 hours while we await the tick PCR panel. We will follow the blood cultures and in general as he has been improving I don't think we should broaden his antibiotics at this point. HISTORY OF PRESENT ILLNESS: This is a 77-year-old man with polymyalgia rheumatica, on corticosteroid therapy, admitted with sudden onset of severe fatigue, myalgia, a little bit of a headache, diffuse myalgia, particularly about both thighs and calves. He had fevers over 103 and marked at 39.1 when he got to the hospital here on 10/19/17. His chest x-ray at that time was unremarkable. Urinalysis showed ketones, trace leukocyte esterase, no blood. Influenza PCR was negative. His CRP was 20. LFTs were normal. White blood cell count was 3, it was down to 2.7 yesterday, up to 3.1 today. The platelets were 100 on admission, down to 91 yesterday, and 78 today. He was started on doxycycline yesterday. His fever resolved yesterday. He is having still significant fatigue, though his appetite is starting to come around a little bit. He did start on a higher dose of prednisone yesterday as well. PAST MEDICAL HISTORY: 1. Polymyalgia rheumatica. 2. History of lyme infection. 3. Nephrolithiasis. 4. Hyperlipidemia. 5. Vertigo. 6. Cataract surgery. MEDICATIONS: 1. Tylenol. 2. Lipitor. 3. Bupropion. 4. Celexa. 5. Doxycycline 100 mg IV every 12 hours. 6. Ibuprofen as needed. 7. Magnesium once. 8. Zofran as needed. 9. Prednisone 40 mg a day. 10. Tramadol as needed. ALLERGIES: No known drug allergies. FAMILY HISTORY: No recurrent infections. SOCIAL HISTORY: Lives outside of [place], lives with his . He had recently been clearing some land in [facility]. He had tick bites when he was there. Ticks that he pulled off himself there. REVIEW OF SYSTEMS: All negative to a 14-point review of systems except as noted above PHYSICAL EXAM: Vital Signs: Temperature is 36.3, heart rate 60, respiratory rate 20, blood pressure 130/60, oxygen saturation 93% on room air. General: He is awake, not in distress. Neurologic: He is oriented x3. Follows all commands. HEENT: There is no conjunctival hemorrhage. Oropharynx without lesions. Neck: Supple without mass. Lymph Nodes: There is no cervical, supraclavicular, inguinal, axillary, or epitrochlear lymphadenopathy. Heart: Regular rate and rhythm without murmurs, rubs, or gallops. Lungs: Clear to auscultation bilaterally. Abdomen: Soft, nontender, nondistended. There are bowel sounds present. Skin: There is no rash or splinter hemorrhage. Musculoskeletal: There is no spinal tenderness to palpation or joint synovitis. There is no muscle tenderness to palpation. DIAGNOSTIC STUDIES/LAB DATA: White blood cell count 3, hemoglobin 12, platelets 78, creatinine is 1, CRP 65 yesterday. Please see impression and recommendations noted above which I discussed with Dr. Morales. Thank you for asking me to see Mr. Ramos in consultation. [id number]/[facility] #: [id number] [facility]ORT[facility] MEDICAL CENTERLaurent
[2017-10-22 06:49] LABS: ABS Basophils 0 10^3/ul (0-0.2); ABS Eosinophils 0 10^3/ul (0-0.6); ABS Lymphocytes 0.8 10^3/ul (1.0-4.8); ABS Monocytes 0.6 10^3/ul (0-0.8); ABS Neutrophils 4.2 10^3/ul (1.5-7.7); ABS Nucleated RBC 0 10^3/ul; Eosinophil % 0 % (0-6); Hematocrit 38 % (42-52); Hemoglobin 13.3 g/dl (14.0-18.0); Lymphocyte % 14.5 % (25-47); Mean Corpuscular HGB Conc 35 g/dl (31-36); Mean Corpuscular Hemoglobin 31 pg (27-31); Mean Corpuscular Volume 91 fL (80-94); Mean Platelet Volume 8.9 um3 (7.4-10.4); Nucleated Red Blood Cells % 0.1; Platelet Count 85 10^3/ul (150-450); Red Blood Count 4.23 10^6/ul (4.0-5.4); Red Cell Distribution Width 13 % (10.5-15); White Blood Count 5.6 10^3/ul (3.5-10.8)
[2017-10-22 08:03] VITALS: BP 125/58
[2017-10-22] MEDS ORDERED: predniSONE TAB* 20 MG PO SCH (08:52)
[2017-10-22] MEDS ORDERED: predniSONE TAB* 20 MG ONE (09:02)
[2017-10-22] MEDS: PROCHLORPERAZINE INJ 5 MG/ML 2 ML VIAL IV PRN (09:03)
[2017-10-22] MEDS: DOXYcycline IV* 100 MG in NS 0.9% 250 ML* 250 ML IVPB SCH (09:05)
[2017-10-22] MEDS: BuPROPion XL* 300 MG TAB.XL PO SCH (09:07)
[2017-10-22] MEDS: Citalopram TAB* 20 MG PO SCH (09:07)
[2017-10-22] MEDS: Atorvastatin* 10 MG TAB PO SCH (09:07)
[2017-10-22] MEDS: Acetaminophen TAB* 325 MG PO PRN (09:07)
--- NOTE | 2017-10-22 09:10 | PN ---
Progress Note - Progress Note Date of Service: 10/22/17 SOAP: Subjective: CC: fever HPI: 77 year old man on corticosteroids for PMR now with fever, myalgia; another fever overnight. Fatigued today, had more energy yesterday. Objective: Vital Signs Temp 38.4 C 10/22/17 07:19 Pulse 63 10/22/17 07:19 Resp 16 10/22/17 08:00 BP 125/58 10/22/17 07:19 Pulse Ox 94 10/22/17 08:00 Intake & Output 10/21/17 10/22/17 10/22/17 18:59 06:59 18:59 Intake Total 600 480 400 Output Total 1000 1000 Balance -400 -520 400 Intake: Oral 600 480 400 Output: Urine 1000 1000 Other: # Bowel Movements 0 Gen:awake, no distress HEENT: no thrush Heart:RRR no murmur Lungs:CTA BL Abd:+BS NTND soft Skin: no rash MSK: no spine tenderness Laboratory Results - last 24 hr 10/19/17 10/20/17 10/22/17 18:18 07:04 06:22 WBC 5.6 RBC 4.23 Hgb 13.3 L Hct 38 L MCV 91 MCH 31 MCHC 35 RDW 13 Plt Count 85 L MPV 8.9 Neut % (Auto) 74.5 Lymph % (Auto) 14.5 L [place] % (Auto) 10.8 H Eos % (Auto) 0 Baso % (Auto) 0.2 Absolute Neuts (auto) 4.2 Absolute Lymphs (auto) 0.8 L Absolute Monos (auto) 0.6 Absolute Eos (auto) 0 Absolute Basos (auto) 0 Absolute Nucleated RBC 0 Nucleated RBC % 0.1 Anaplasma DNA (PCR) Positive A* B. divergens/MO-1 PCR Negative Babesia duncani DNA PCR Negative Babesia microti DNA PCR Negative Lyme Disease Serology Negative Borrelia miyamotoi (PCR) Negative E.chaffeensis DNA (PCR) Negative E. ewingii/canis (PCR) Negative E. muris-like DNA (PCR) Negative Assessment: 1. fever 2. Anaplasmosis w leukopenia and thrombocytopenia 3. current corticosteroids for PMR, dose incr to 40 mg here Plan: 1. continue doxycycline 100 mg twice daily, cut corticosteroids back to pre admission dose as mild immunosuppression can prolong Anaplasmosis illness Discussed with Dr Morales
--- NOTE | 2017-10-23 06:49 | DS ---
CC: Dr. Lobo; Dr. Gomez; Dr. Bourne * DISCHARGE SUMMARY: DATE OF ADMISSION: 10/19/17 DATE OF DISCHARGE: 10/22/17 PRIMARY CARE PROVIDER: Dr. Lobo. DISCHARGE DIAGNOSIS: Sepsis due to anaplasma infection. SECONDARY DIAGNOSES: 1. History of polymyalgia rheumatica, on chronic steroids. The patient is being discharged and backed down on his 10 mg of prednisone daily. 2. Depression. 3. Nephrolithiasis. 4. Lyme disease. 5. Hyperlipidemia. 6. Vertigo. 7. History of chronic kidney disease in the past. Currently, the patient's creatinine is normal. CONSULTATIONS DURING THE HOSPITAL STAY: Included Dr. Bourne from Infectious Diseases. MEDICATIONS AT DISCHARGE: 1. Lipitor 10 mg daily. 2. Bupropion 300 mg daily. 3. Celexa 20 mg daily. 4. Doxycycline 100 mg b.i.d. for 10 days total. 5. Robitussin DM 5 mL every 12 hours p.r.n. 6. Ibuprofen 600 mg on a p.r.n. basis. 7. Multivitamin 1 tablet daily. 8. [place]-3 fatty acids 1000 mg daily. 9. Prednisone 10 mg daily. LABORATORY DATA AND STUDIES PERFORMED DURING THE HOSPITAL STAY: Included on 03/31, sodium of 139, potassium 3.8, chloride 110, carbon dioxide 23, BUN 15, creatinine 1.03. Liver function tests were unremarkable. C-reactive protein on 10/20/17 was 65. CPK was 265. On 10/22/17, white blood cell count of 5.6, hemoglobin of 13.3, hematocrit of 38 , and platelets of 85, which was up from yesterday's level at 78. Anaplasma DNA PCR serology was positive. The remaining tick-borne disease including ehrlichia and lyme as well as Borrelia miyamotoi were negative. Influenza testing was negative at admission. HOSPITALIZATION COURSE: Mr. Ramos is a 77-year-old male with history of Lyme disease last year, who also has polymyalgia rheumatica and had been on chronic prednisone, currently on 10 mg dose, who presented to the hospital complaining of fever, myalgias and generalized weakness. The patient was so weak that he "could not pick himself up from bed." The patient continued to be febrile for another couple of days and on the day of discharge he still had a fever of 101 degrees. Despite that, he feels much improved and he is requesting to go home. The patient remembered that he had several tick bites approximately 2 to 3 weeks prior to presentation to the emergency department. For suspicion of Lyme versus anaplasma, the patient was placed on doxycycline at admission. The patient was also noted to have leukopenia and thrombocytopenia, both of those were resolving by the time of discharge. On the night prior to discharge, the patient's anaplasma DNA PCR came back positive. Dr. Bourne saw the patient in consultation and recommended 10 days of doxycycline [address] Bourne also recommended to titrate back down the steroids since that could prolong the patient's course of the disease. Please note that for the couple of days of the patient's hospital stay he was placed on 40 mg of prednisone daily due to his generalized weakness and acute illness. That was titrated down to 20 mg on the day of discharge and the patient is to be back on 10 mg daily at home. At discharge, the patient is recommended to follow up with his primary care provider as well as Dr. Gomez. The patient also can follow up with Dr. Bourne as needed. PHYSICAL EXAMINATION: At the time of discharge, blood pressure of 125/58, heart rate of 63 and regular, respiratory rate 22, oxygen saturation 92% on room air, temperature 99.1. General: The patient is a very pleasant 77-year- old male, who is in no acute distress. Alert, awake, and oriented x3. HEENT: Head: Atraumatic, normocephalic. Eyes: Pupils are equal, reactive to light and accommodation. Oropharynx is clear. Mucosa moist. Neck: Supple. No JVD. No bruits bilaterally. Cardiovascular: Regular rate and rhythm. No murmur. Respiratory: Clear to auscultation bilaterally. Abdomen: Soft, nontender. Bowel sounds are present in all 4 quadrants. Extremities: There is no edema. Pulses are 2+ bilaterally. No clubbing or cyanosis. On neuro evaluation, speech is clear. Cranial nerves II through XII are grossly intact. Motor strength is 5/5 in the bilateral upper extremities. The patient has chronic problems with hip flexion bilaterally due to polymyalgia rheumatica and that is slightly impaired, but unchanged from his chronic baseline. Please note that at discharge the patient was offered to stay another day due to his fever this morning, but he requested to be discharged. Please note that this is a short summary of the patient's hospitalization. Please refer to further medical records for details. [id number]/[facility] #: [id number] MTDD
== END 2017-10-22 12:25 | disposition home or self-care (01) | DRG 872 ==
LOC: ED 15:37 → MED 20:28 → OBSVTOIN 10-20 09:00
PROVIDERS: ADMIT Pediatrics; ATTEND Internal Medicine
DX: A41.89 Other specified sepsis (principal); M35.3 Polymyalgia rheumatica; F32.9 Major depressive disorder, single episode, unspecified; N20.0 Calculus of kidney; E78.5 Hyperlipidemia, unspecified; D69.6 Thrombocytopenia, unspecified; W57.XXXA Bitten or stung by nonvenomous insect and other nonvenomous arthropods, initial encounter; E83.51 Hypocalcemia; I45.10 Unspecified right bundle-branch block; Y92.9 Unspecified place or not applicable; Z79.1 Long term (current) use of non-steroidal anti-inflammatories (NSAID); Z79.52 Long term (current) use of systemic steroids; Z79.899 Other long term (current) drug therapy; Z80.3 Family history of malignant neoplasm of breast; Z82.49 Family history of ischemic heart disease and other diseases of the circulatory system
CPT/HCPCS: 36415; 70450; 71045; 80048; 80053; 81003; 81015; 82150; 82306; 82330; 82550; 82565; 82652; 83605; 83690; 83735; 83880; 83970; 84100; 84145; 84484; 84520; 85025; 85060; 85610; 85730; 86140; 86618; 87040; 87086; 87502; 87798; 93005; 99284; A9270-GY; G8978-GP-CI; G8979-GP-CH; J0610; J0696; J0780; J1644; J1885; J3475; J7512

== ENCOUNTER 2018-02-17 07:10 | Inpatient (IN) | payer MEDICARE, BC ==
[2018-02-17] MEDS ORDERED: Magnesium Hydroxide LIQ* 30 ML UDC PO PRN (15:25)
[2018-02-17] MEDS ORDERED: Warfarin TAB(*) 4 MG PO SCH (17:00)
[2018-02-17] MEDS: buPROPion SR TAB.SR* 150 MG PO SCH (17:44)
[2018-02-17] MEDS: Atorvastatin* 10 MG TAB PO SCH (17:44)
[2018-02-17] MEDS: Docusate CAP* 100 MG PO SCH (20:13)
[2018-02-17] MEDS: Senna TAB PO SCH (20:13)
[2018-02-17 20:37] LABS: Urine Appearance Clear; Urine Blood 1+ (Negative); Urine Color Yellow; Urine Ketones Negative (Negative); Urine Protein Negative (Negative); Urine Red Blood Cell 3+(>10/hpf) (Absent); Urine Urobilinogen Positive (Negative); Urine White Blood Cell Trace(0-5/hpf) (Absent)
--- NOTE | 2018-02-17 21:11 | HP ---
ADMISSION HISTORY AND PHYSICAL: DATE OF ADMISSION: 02/17/18 PRIMARY CARE DOCTOR: Dr. Lobo. REASON FOR ADMISSION: Right hip fracture. HISTORY OF PRESENT ILLNESS: Vicente Ramos is a 77-year-old male. 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 Other than that, his medical history is fairly benign. On 02/13/18, he was in his cabin in the [facility]. There was no electricity and no bathrooms. He was getting out of the cabin to go to the bathroom at the [place] side. He tripped over a chair just outside the cabin and fell to the ground. He had immediate pain in his right leg and was having difficulty moving. His was able to get somebody else to call 911. The patient was brought to [facility] and then transferred to [facility] in [place]. He had x-rays taken and was found to have a fractured hip. He was taken to the operating room and underwent a hemiarthroplasty of his right hip. Postoperatively, he was put on Coumadin for DVT prophylaxis. His INR this morning was 1.7. He was treated with hydrocodone for pain. He was felt to have physical therapy and occupational therapy needs. He is now being admitted for inpatient rehab so that he might return to independent living. PAST MEDICAL HISTORY: Significant for hyperlipidemia and as mentioned, the Lyme disease with chronic inflammation of his right knee. He has seen Dr. Gomez in the past. CURRENT MEDICATIONS: Include: 1. Lipitor. 2. [place]. 3. Wellbutrin. 4. Celexa. 5. Prednisone. ALLERGIES: The patient has no known drug allergies. SOCIAL HISTORY: He is a nonsmoker. He does rare drinking. He lives with his in a 2-story house. His is younger than he is. He is retired. His works full-time for [employer]. Bedrooms and bathrooms are upstairs in his house. REVIEW OF SYSTEMS: The patient reports no current shortness of breath or chest pain. Last bowel movement was this morning. PHYSICAL EXAMINATION VITAL SIGNS: The patient's temperature is 98.5, blood pressure is 119/70, pulse 55, respirations are 18. HEENT: His extraocular movements are intact. Tongue is midline. NECK: Supple. LUNGS: Sound clear to auscultation bilaterally. HEART: Sounds are regular. S1 and S2 are audible. ABDOMEN: Soft and nontender. EXTREMITIES: His right hip has a wound, which is clean, dry, and intact. Peripheral pulses are intact. Trace edema was noted in the right leg. NEUROLOGIC: The patient was awake, alert, oriented. Muscle strength appeared to be 5/5 except the right leg, which was 3/5 secondary to pain. FUNCTIONAL EXAM: He transfers with min assist. ASSESSMENT: Right hip fracture, status post hemiarthroplasty of the right hip. PLAN: Integrate him into a comprehensive and therapeutic rehab program with the following goals: 1. Physical Therapy will work with the patient. They are going to work on functional transfer training, ambulation training with a walker. 2. Occupational Therapy will see the patient, work on his activities of daily living including toileting and toilet transfers. 3. Coumadin for DVT prophylaxis. 4. Adequate analgesia. 5. His bowels will be regulated. 6. Continue prednisone for chronic inflammation of the right knee. 7. Continue Wellbutrin and Celexa for depression. 8. Prilosec for GI prophylaxis. 9. behavioral services tech will be closely involved to make sure that any services and equipment the patient requires are in place prior to discharge. 10. The patient had a small amount of hematuria today. We are going to check a urinalysis and follow. 11. Home with appropriate services. ESTIMATED LENGTH OF STAY: 7 to 10 days. [id number]/[facility] #: [id number] MTDD
[2018-02-18] MEDS: Omeprazole CAP* 20 MG PO SCH (06:05)
[2018-02-18 08:23] LABS: ABS Basophils 0 10^3/ul (0-0.2); ABS Eosinophils 0.1 10^3/ul (0-0.6); ABS Monocytes 0.5 10^3/ul (0-0.8); ABS Neutrophils 4.1 10^3/ul (1.5-7.7); ABS Nucleated RBC 0 10^3/ul; Eosinophil % 2.1 % (0-6); Hematocrit 33 % (42-52); Hemoglobin 11.2 g/dl (14.0-18.0); Lymphocyte % 16.6 % (25-47); Mean Corpuscular HGB Conc 34 g/dl (31-36); Mean Corpuscular Hemoglobin 31 pg (27-31); Mean Corpuscular Volume 91 fL (80-94); Nucleated Red Blood Cells % 0; Platelet Count 194 10^3/ul (150-450); Red Blood Count 3.64 10^6/ul (4.00-5.40); Red Cell Distribution Width 13 % (10.5-15); White Blood Count 5.8 10^3/ul (3.5-10.8)
[2018-02-18] MEDS: predniSONE TAB* 5 MG PO SCH (08:26)
[2018-02-18] MEDS: HYDROcodone/ACETAMIN 5-325 MG* 1 TAB PO PRN ×2 (08:26→21:01)
[2018-02-18] MEDS: buPROPion SR TAB.SR* 150 MG PO SCH ×2 (08:26→17:05)
[2018-02-18] MEDS: Citalopram TAB* 20 MG PO SCH (08:26)
[2018-02-18 08:39] LABS: EGFR Non-African American 71.4 (>60)
[2018-02-18] MEDS: Docusate CAP* 100 MG PO SCH ×2 (08:40→21:10)
--- NOTE | 2018-02-18 12:31 | PMRUTEAM ---
PMRU: Team Meeting Current Status: Nursing: Current Status Skin Deviations [Left Arm] Previous Access Point Skin Deviations [Right Distal Abrasion Knee] Skin Deviations [Right Hip] Incision Skin Deviation Description [ A/C old IV site redness noted, hard to touch Left Arm] removed in previous facility, no complain by Pt. Physical Therapy: Current Status Bed Mobility Assistance Mod Assist Transfer Moblility Assistance Min Assist Transfer/Bed Mobility Rolling Walker Recommended Devices Ambulation Assistance Contact Guard 15 feet Ambulation Assistive Devices Rolling Walker Stairs Assistance Not tested Stairs Recommended Devices Two Rails Number of Stairs 13 Occupational Therapy: Current Status Upper Body Dressing Supervision Lower Body Dressing Mod Assist Bathing Min Assist Toileting Min Assist Toilet Transfer Min Assist,2 Person Assist Eating Ind with Adaptive Equip Social Work: Current Status Discharge Plan return home with home care svs and family support Potential for Family Training pt's is attentive and involved Anticipated Discharge Home Destination Discharge With home care svs and family support Goals: Physical Therapy: Updated Goals Transfer/Bed Mobility Rolling Walker Recommended Devices Independent transfers, independent ambulation 150 feet with FWW, independent 13 stairs Occupational Therapy: Initial Goals Goals to be Completed in (Days 7-10 days ) Upper Body Bathing Routine Modified Independent with Lower Body Bathing Routine Modified Independent with Upper Body Dressing Routine Independent Lower Body Dressing Routine Modified Independent with Toilet Hygeine and Clothing Modified Independent with Management Routine Toilet Transfer Routine Modified Independent with Tub Transfer Routine Modified Independent with Functional Transfers for ADL Modified Independent with Grooming Routine Independent Feeding Routine Modified Independent with Light Housekeeping Tasks Minimal Contact Assist Social Work: Goals Discharge Plan return home with home care svs and family support Potential for Family Training pt's is attentive and involved Anticipated Discharge Home Destination Discharge With home care svs and family support Care Plan: Care Plan Coping/Psych-Improve/Maintain Start: 02/17/18 22:03 Freq: QSHIFT Status: Active Target: Protocol: Activity Type Activity Date Activity User E-Sign Co-Sign Detail Recorded Client Recorded Date Recorded By Document 02/18/18 01:26 [id number] [id number] 02/18/18 01:27 [id number] 02/18/18 01:26 PMRU Outcome: Coping/Psychosocial Coping Outcome/Goals Verbalization of Acceptance of Rehab Admit Verbalization of Sense of Control Over Health Status Willingness to Participate in Treatment Plan and Basic Needs Psychosocial Outcome/Goals Maintain/ Improve Emotional Health Cooperate/ Participate in Plan DVT Prophylaxis- Improve/Maintain Start: 02/17/18 22:03 Freq: QSHIFT Status: Active Target: Protocol: Activity Type Activity Date Activity User E-Sign Co-Sign Detail Recorded Client Recorded Date Recorded By Document 02/18/18 01:26 [id number] 02/18/18 01:27 [id number] 02/18/18 01:26 PMRU Outcome: DVT Prophylaxis Outcome/Goals Remains Free of DVT TEDS Stockings on Every AM, Off at HS Discharge Planning - Improve/Maintain Start: 02/17/18 22:03 Freq: DAILY Status: Active Target: Protocol: Activity Type Activity Date Activity User E-Sign Co-Sign Detail Recorded Client Recorded Date Recorded By Document 02/18/18 01:26 [id number] [id number] 02/18/18 01:27 [id number] 02/18/18 01:26 PMRU Outcome: Discharge Planning Update Patient Family No Outcome/Goals Demonstrates Understanding of Discharge Plan Education-Improve/Maintain Start: 02/17/18 22:03 Freq: QSHIFT Status: Active Target: Protocol: Activity Type Activity Date Activity User E-Sign Co-Sign Detail Recorded Client Recorded Date Recorded By Document 02/18/18 01:26 [id number] 02/18/18 01:27 [id number] 02/18/18 01:26 PMRU Outcome: Education Outcome/Goals Demonstrate/ Verbalize Understanding of Written Discharge Instructions Demonstrates Skills Encourage Questions Mobility- Improve/Maintain Start: 02/17/18 22:03 Freq: DAILY Status: Active Target: Protocol: Activity Type Activity Date Activity User E-Sign Co-Sign Detail Recorded Client Recorded Date Recorded By Document 02/18/18 09:54 [id number] 02/18/18 09:54 [id number] 02/18/18 09:54 PMRU Outcome: Mobility Physical Therapy Evaluation and Yes Treatment Activity OOB with Assistance Yes WBAT Yes Device Yes: RW Assistance Yes Patient to be seen 5x/wk for 60-120 min/ Therex day for: Mobility Training Gait Training Balance Outcome/Goals Maintain/ Achieve Baseline Mobility Status Improve Mobility Status Demonstrates Proper Use of Assistive Devices Free from Complications of Immobility Bed Mobility Yes Transfers Yes Gait x ft Yes: 150 Up/Down Stairs Yes: 13 With HEP Yes Pain/Comfort- Improve/Maintain Start: 02/17/18 22:03 Freq: QSHIFT Status: Active Target: Protocol: Activity Type Activity Date Activity User E-Sign Co-Sign Detail Recorded Client Recorded Date Recorded By Document 02/18/18 01:26 [id number] 02/18/18 01:27 [id number] 02/18/18 01:26 PMRU Outcome: Pain/Comfort Outcome/Goals Demonstrates Knowledge and Use of Available Comfort Measures Achieves Acceptable Comfort/Pain Level as Determined by Patient/Condit Maintain Comfort Level Allowing Patient to Fully Participate in Rehab Progression Toward Outcome/Goals Progressing Outcome/Goals Met Comment pt denied need for pain medication Safety- Improve/Maintain Start: 02/17/18 22:03 Freq: QSHIFT Status: Active Target: Protocol: Activity Type Activity Date Activity User E-Sign Co-Sign Detail Recorded Client Recorded Date Recorded By Document 02/18/18 01:26 [id number] 02/18/18 01:27 [id number] 02/18/18 01:26 PMRU Outcome: Safety Outcome/Goals Remain Free of Injury or Harm Cooperates with Safety Measures for Least Restrictive Environment Prevent Falls/ Injury Progression Toward Outcome/Goals Progressing Skin- Improve/Maintain Start: 02/17/18 22:03 Freq: QSHIFT Status: Active Target: Protocol: Activity Type Activity Date Activity User E-Sign Co-Sign Detail Recorded Client Recorded Date Recorded By Document 02/18/18 01:26 [id number] 02/18/18 01:27 [id number] 02/18/18 01:26 PMRU Outcome: Skin Skin Risk Level Medium Skin Orders Dressing Change Outcome/Goals Maintain/ Improve Skin Intergrity Surgical Incisions Healing Medicine Note: Length of Stay: 1 week Anticipated Discharge Destination: Home Tentative Discharge Date: 02/25/18 Discharged to: Home
[2018-02-18] MEDS ORDERED: Warfarin TAB(*) 5 MG PO SCH (17:00)
[2018-02-18] MEDS: Atorvastatin* 10 MG TAB PO SCH (17:05)
[2018-02-18] MEDS: Senna TAB PO SCH (21:10)
--- NOTE | 2018-02-18 21:21 | PN ---
Progress Note Date of Service: 02/18/18 Note: NIDIA BARNARD was visited. Therapy notes read and reviewed. The patient was discussed in interdisciplinary plan of care rounds. He is doing pretty well. INR is therapeutic, will adjust Coumadin Current Medications: Active Medications Generic Name Dose Route Start Last Admin Trade Name Freq PRN Reason Stop Dose Admin Acetaminophen 650 mg 02/17/18 15:25 Tylenol Tab* PO Q6H PRN FEVER/PAIN Hydrocodone Bitart/Acetaminophen 1 tab 02/17/18 15:34 02/18/18 21:01 [place] 5-325 Tab* PO 1 tab Q4H PRN Administration PAIN - MODERATE TO SEVERE Hydrocodone Bitart/Acetaminophen 2 tab 02/17/18 15:35 02/18/18 08:26 [place] 5-325 Tab* PO 2 tab Q4H PRN Administration PAIN - SEVERE Atorvastatin Calcium 10 mg 02/17/18 17:00 02/18/18 17:05 Lipitor* PO 10 mg 1700 MEMO Administration Bupropion HCl 150 mg 02/17/18 17:00 02/18/18 17:05 Wellbutrin Sr Tab* PO 150 mg 0800,1700 MEMO Administration Citalopram Hydrobromide 20 mg 02/18/18 09:00 02/18/18 08:26 Celexa Tab* PO 20 mg DAILY MEMO Administration Docusate Sodium 100 mg 02/17/18 21:00 02/18/18 21:10 Colace Cap* PO Not Given BID MEMO Magnesium Hydroxide 30 ml 02/17/18 15:25 Milk Of Magnesia Liq* PO Q6H PRN CONSTIPATION Omeprazole 20 mg 02/18/18 06:00 02/18/18 06:05 Prilosec Cap* PO 20 mg 0600 MEMO Administration Prednisone 7.5 mg 02/18/18 09:00 02/18/18 08:26 Deltasone Tab* PO 7.5 mg DAILY MEMO Administration Senna 2 tab 02/17/18 21:00 02/18/18 21:10 Senokot Tab* PO Not Given BEDTIME MEMO Warfarin Sodium 5 mg 02/18/18 17:00 02/18/18 17:05 Coumadin Tab(*) PO 5 mg DAILY@1700 MEMO Administration Protocol Vital Signs: Vital Signs Temp Pulse Resp BP Pulse Ox 98.8 F 58 18 124/61 92 02/18/18 15:59 02/18/18 15:59 02/18/18 21:10 02/18/18 15:59 02/18/18 20:00 Lab Results: Laboratory Results - last 24 hr 02/18/18 02/18/18 02/18/18 07:59 07:59 07:59 WBC 5.8 RBC 3.64 L Hgb 11.2 L Hct 33 L MCV 91 MCH 31 MCHC 34 RDW 13 Plt Count 194 MPV 8.0 Neut % (Auto) 71.5 Lymph % (Auto) 16.6 L [place] % (Auto) 9.3 H Eos % (Auto) 2.1 Baso % (Auto) 0.5 Absolute Neuts (auto) 4.1 Absolute Lymphs (auto) 1.0 Absolute Monos (auto) 0.5 Absolute Eos (auto) 0.1 Absolute Basos (auto) 0 Absolute Nucleated RBC 0 Nucleated RBC % 0 INR (Anticoag Therapy) 2.00 H Sodium 139 Potassium 3.8 Chloride 104 Carbon Dioxide 29 Anion Gap 6 BUN 16 Creatinine 1.01 Est GFR ( Amer) 86.4 Est GFR (Non-Af Amer) 71.4 BUN/Creatinine Ratio 15.8 Glucose 124 H Calcium 8.5 L Total Bilirubin 0.60 AST 24 ALT 22 Alkaline Phosphatase 47 Total Protein 5.7 L Albumin 3.3 Globulin 2.4 Albumin/Globulin Ratio 1.4 Exam: LUNGS: Clear bilaterally HEART: reg rhythm ABDOMEN: Soft, +BS EXTREMITIES: Right hip wound C/D/I NEUROLOGIC: Alert and oriented. Motor 5/5 except RLE Assessment/Plan: 1. Right Hip Fracture, S/P HAP: WBAT. PT/OT. They want to follow with a local ortho 2. Right Knee Inflammation after Lyme Disease: Prednisone 3. Depression: Celexa/Wellbutrin 4. DVT Prophylaxis: Coumadin, now 5 mg 5. Advanced Directives: Full Code 02/18/18 21:22
[2018-02-19] MEDS: Omeprazole CAP* 20 MG PO SCH (05:57)
[2018-02-19] MEDS: HYDROcodone/ACETAMIN 5-325 MG* 1 TAB PO PRN ×4 (06:01→21:01)
[2018-02-19 07:09] LABS: INR 2.54 (0.77-1.02)
[2018-02-19] MEDS: buPROPion SR TAB.SR* 150 MG PO SCH ×2 (09:31→17:19)
[2018-02-19] MEDS: Docusate CAP* 100 MG PO SCH ×2 (09:31→20:59)
[2018-02-19] MEDS: Citalopram TAB* 20 MG PO SCH (09:31)
[2018-02-19] MEDS: predniSONE TAB* 5 MG PO SCH (09:31)
[2018-02-19] MEDS ORDERED: Warfarin TAB(*) 4 MG PO ONE (17:00)
[2018-02-19] MEDS: Atorvastatin* 10 MG TAB PO SCH (17:19)
--- NOTE | 2018-02-19 19:41 | PN ---
Progress Note Date of Service: 02/19/18 Note: NIDIA BARNARD was visited. Therapy notes read and reviewed. He says he did very well his first day in rehab but today, has a lot more pain in the right hip and thigh. INR 2.54 today, Coumadin adjusted Current Medications: Active Medications Generic Name Dose Route Start Last Admin Trade Name Freq PRN Reason Stop Dose Admin Acetaminophen 650 mg 02/17/18 15:25 Tylenol Tab* PO Q6H PRN FEVER/PAIN Hydrocodone Bitart/Acetaminophen 1 tab 02/17/18 15:34 02/19/18 15:39 [place] 5-325 Tab* PO 1 tab Q4H PRN Administration PAIN - MODERATE TO SEVERE Hydrocodone Bitart/Acetaminophen 2 tab 02/17/18 15:35 02/18/18 08:26 [place] 5-325 Tab* PO 2 tab Q4H PRN Administration PAIN - SEVERE Atorvastatin Calcium 10 mg 02/17/18 17:00 02/19/18 17:19 Lipitor* PO 10 mg 1700 MEMO Administration Bupropion HCl 150 mg 02/17/18 17:00 02/19/18 17:19 Wellbutrin Sr Tab* PO 150 mg 0800,1700 MEMO Administration Citalopram Hydrobromide 20 mg 02/18/18 09:00 02/19/18 09:31 Celexa Tab* PO 20 mg DAILY MEMO Administration Docusate Sodium 100 mg 02/17/18 21:00 02/19/18 09:31 Colace Cap* PO Not Given BID MEMO Magnesium Hydroxide 30 ml 02/17/18 15:25 Milk Of Magnesia Liq* PO Q6H PRN CONSTIPATION Omeprazole 20 mg 02/18/18 06:00 02/19/18 05:57 Prilosec Cap* PO 20 mg 0600 MEMO Administration Prednisone 7.5 mg 02/18/18 09:00 02/19/18 09:31 Deltasone Tab* PO 7.5 mg DAILY MEMO Administration Senna 2 tab 02/17/18 21:00 02/18/18 21:10 Senokot Tab* PO Not Given BEDTIME MEMO Vital Signs: Vital Signs Temp Pulse Resp BP Pulse Ox 99.1 F 57 16 108/61 95 02/19/18 15:57 02/19/18 15:57 02/19/18 17:20 02/19/18 15:57 02/19/18 15:57 Lab Results: Laboratory Results - last 24 hr 02/19/18 06:42 INR (Anticoag Therapy) 2.54 H Exam: LUNGS: Clear bilaterally HEART: reg rhythm ABDOMEN: Soft, +BS EXTREMITIES: Right hip wound C/D/I, some ecchymosis near wound NEUROLOGIC: Alert and oriented. Motor 5/5 except RLE Assessment/Plan: 1. Right Hip Fracture, S/P HAP: WBAT. PT/OT. They want to follow with a local ortho 2. Right Knee Inflammation after Lyme Disease: Prednisone 3. Depression: Celexa/Wellbutrin 4. DVT Prophylaxis: Coumadin, now 4 mg 5. Advanced Directives: Full Code 02/19/18 19:43 02/19/18 19:44
[2018-02-19] MEDS: Senna TAB PO SCH (20:59)
[2018-02-20] MEDS: Omeprazole CAP* 20 MG PO SCH (05:41)
--- NOTE | 2018-02-20 08:10 | PN ---
Progress Note Date of Service: 02/20/18 Note: NIDIA BARNARD was visited. Nursing notes read and reviewed. He thinks his hip is a little better today. Minimal pain. Urine has cleared. Current Medications: Active Medications Generic Name Dose Route Start Last Admin Trade Name Freq PRN Reason Stop Dose Admin Acetaminophen 650 mg 02/17/18 15:25 Tylenol Tab* PO Q6H PRN FEVER/PAIN Hydrocodone Bitart/Acetaminophen 1 tab 02/17/18 15:34 02/19/18 21:01 [place] 5-325 Tab* PO 1 tab Q4H PRN Administration PAIN - MODERATE TO SEVERE Hydrocodone Bitart/Acetaminophen 2 tab 02/17/18 15:35 02/18/18 08:26 [place] 5-325 Tab* PO 2 tab Q4H PRN Administration PAIN - SEVERE Atorvastatin Calcium 10 mg 02/17/18 17:00 02/19/18 17:19 Lipitor* PO 10 mg 1700 MEMO Administration Bupropion HCl 150 mg 02/17/18 17:00 02/19/18 17:19 Wellbutrin Sr Tab* PO 150 mg 0800,1700 MEMO Administration Citalopram Hydrobromide 20 mg 02/18/18 09:00 02/19/18 09:31 Celexa Tab* PO 20 mg DAILY MEMO Administration Docusate Sodium 100 mg 02/17/18 21:00 02/19/18 20:59 Colace Cap* PO 100 mg BID MEMO Administration Magnesium Hydroxide 30 ml 02/17/18 15:25 Milk Of Magnesia Liq* PO Q6H PRN CONSTIPATION Omeprazole 20 mg 02/18/18 06:00 02/20/18 05:41 Prilosec Cap* PO 20 mg 0600 MEMO Administration Prednisone 7.5 mg 02/18/18 09:00 02/19/18 09:31 Deltasone Tab* PO 7.5 mg DAILY MEMO Administration Senna 2 tab 02/17/18 21:00 02/19/18 20:59 Senokot Tab* PO 2 tab BEDTIME MEMO Administration Warfarin Sodium 4 mg 02/20/18 17:00 Coumadin Tab(*) PO DAILY@1700 [facility] Protocol Vital Signs: Vital Signs Temp Pulse Resp BP Pulse Ox 98.6 F 58 18 132/69 95 02/20/18 05:42 02/20/18 05:42 02/20/18 05:42 02/20/18 05:42 02/20/18 05:42 Exam: LUNGS: Clear bilaterally HEART: reg rhythm ABDOMEN: Soft, +BS EXTREMITIES: Right hip wound C/D/I, some ecchymosis near wound NEUROLOGIC: Alert and oriented. Motor 5/5 except RLE Assessment/Plan: 1. Right Hip Fracture, S/P HAP: WBAT. PT/OT. They want to follow with a local ortho 2. Right Knee Inflammation after Lyme Disease: Prednisone 3. Depression: Celexa/Wellbutrin 4. DVT Prophylaxis: Coumadin, now 4 mg 5. Advanced Directives: Full Code 02/20/18 08:10
[2018-02-20] MEDS: Docusate CAP* 100 MG PO SCH ×2 (10:29→20:26)
[2018-02-20] MEDS: Citalopram TAB* 20 MG PO SCH (10:29)
[2018-02-20] MEDS: predniSONE TAB* 5 MG PO SCH (10:29)
[2018-02-20] MEDS: buPROPion SR TAB.SR* 150 MG PO SCH ×2 (10:29→17:08)
[2018-02-20] MEDS: HYDROcodone/ACETAMIN 5-325 MG* 1 TAB PO PRN ×2 (11:11→20:26)
[2018-02-20] MEDS ORDERED: Warfarin TAB(*) 4 MG PO SCH (17:00)
[2018-02-20] MEDS: Atorvastatin* 10 MG TAB PO SCH (17:08)
[2018-02-20] MEDS: Senna TAB PO SCH (20:26)
[2018-02-21] MEDS: Omeprazole CAP* 20 MG PO SCH (05:24)
[2018-02-21 07:00] LABS: INR 1.85 (0.77-1.02)
[2018-02-21] MEDS: predniSONE TAB* 5 MG PO SCH (07:57)
[2018-02-21] MEDS: buPROPion SR TAB.SR* 150 MG PO SCH ×2 (07:57→17:44)
[2018-02-21] MEDS: HYDROcodone/ACETAMIN 5-325 MG* 1 TAB PO PRN ×2 (07:57→20:21)
[2018-02-21] MEDS: Citalopram TAB* 20 MG PO SCH (07:58)
[2018-02-21] MEDS: Docusate CAP* 100 MG PO SCH ×2 (07:59→20:19)
[2018-02-21] MEDS: Acetaminophen TAB* 325 MG PO PRN (12:24)
--- NOTE | 2018-02-21 16:43 | PN ---
Progress Note Date of Service: 02/21/18 Note: NIDIA BARNARD was visited. Therapy notes read and reviewed. He feels like he is moving better. He is having some pain in the groin but this is typical for his hip fracture. INR 1.85, coumadin adjusted. Current Medications: Active Medications Generic Name Dose Route Start Last Admin Trade Name Freq PRN Reason Stop Dose Admin Acetaminophen 650 mg 02/17/18 15:25 02/21/18 12:24 Tylenol Tab* PO 650 mg Q6H PRN Administration FEVER/PAIN Hydrocodone Bitart/Acetaminophen 1 tab 02/17/18 15:34 02/21/18 07:57 [place] 5-325 Tab* PO 1 tab Q4H PRN Administration PAIN - MODERATE TO SEVERE Hydrocodone Bitart/Acetaminophen 2 tab 02/17/18 15:35 02/18/18 08:26 [place] 5-325 Tab* PO 2 tab Q4H PRN Administration PAIN - SEVERE Atorvastatin Calcium 10 mg 02/17/18 17:00 02/20/18 17:08 Lipitor* PO 10 mg 1700 MEMO Administration Bupropion HCl 150 mg 02/17/18 17:00 02/21/18 07:57 Wellbutrin Sr Tab* PO 150 mg 0800,1700 MEMO Administration Citalopram Hydrobromide 20 mg 02/18/18 09:00 02/21/18 07:58 Celexa Tab* PO 20 mg DAILY MEMO Administration Docusate Sodium 100 mg 02/17/18 21:00 02/21/18 07:59 Colace Cap* PO Not Given BID MEMO Magnesium Hydroxide 30 ml 02/17/18 15:25 Milk Of Magnesia Liq* PO Q6H PRN CONSTIPATION Omeprazole 20 mg 02/18/18 06:00 02/21/18 05:24 Prilosec Cap* PO 20 mg 0600 MEMO Administration Prednisone 7.5 mg 02/18/18 09:00 02/21/18 07:57 Deltasone Tab* PO 7.5 mg DAILY MEMO Administration Senna 2 tab 02/17/18 21:00 02/20/18 20:26 Senokot Tab* PO 2 tab BEDTIME MEMO Administration Warfarin Sodium 5 mg 02/21/18 17:00 Coumadin Tab(*) PO DAILY@1700 [facility] Protocol Vital Signs: Vital Signs Temp Pulse Resp BP Pulse Ox 98.3 F 62 1 145/73 94 02/21/18 05:23 02/21/18 05:23 02/21/18 10:57 02/21/18 05:23 02/21/18 05:23 Lab Results: Laboratory Results - last 24 hr 02/21/18 06:29 INR (Anticoag Therapy) 1.85 H Exam: LUNGS: Clear bilaterally HEART: reg rhythm ABDOMEN: Soft, +BS EXTREMITIES: Right hip wound C/D/I, some ecchymosis near wound NEUROLOGIC: Alert and oriented. Motor 5/5 except RLE Assessment/Plan: 1. Right Hip Fracture, S/P HAP: WBAT. PT/OT. They want to follow with a local ortho 2. Right Knee Inflammation after Lyme Disease: Prednisone 3. Depression: Celexa/Wellbutrin 4. DVT Prophylaxis: Coumadin, increased to 5 mg 5. Advanced Directives: Full Code 02/21/18 16:43
[2018-02-21] MEDS: Atorvastatin* 10 MG TAB PO SCH (17:45)
[2018-02-21] MEDS: Warfarin TAB(*) 5 MG PO SCH (17:45)
[2018-02-21] MEDS: Senna TAB PO SCH (20:19)
[2018-02-22] MEDS: Omeprazole CAP* 20 MG PO SCH (05:29)
[2018-02-22] MEDS: buPROPion SR TAB.SR* 150 MG PO SCH ×2 (08:28→17:15)
[2018-02-22] MEDS: Citalopram TAB* 20 MG PO SCH (08:28)
[2018-02-22] MEDS: Docusate CAP* 100 MG PO SCH ×3 (08:28→19:06)
[2018-02-22] MEDS: predniSONE TAB* 5 MG PO SCH (08:28)
[2018-02-22] MEDS: HYDROcodone/ACETAMIN 5-325 MG* 1 TAB PO PRN ×3 (08:31→21:07)
--- NOTE | 2018-02-22 12:26 | PMRUTEAM ---
PMRU: Team Meeting Current Status: Nursing: Current Status Skin Deviations [Left Arm] Abrasion Skin Deviations [Right Distal Abrasion Knee] Skin Deviations [Right Hip] Incision Skin Deviation Description [ A/C old IV site redness noted, hard to touch Left Arm] removed in previous facility, no complain by Pt. Skin Deviation Description [ healing Right Distal Knee] Skin Deviation Description [ Drsg intact Right Hip] Drain Type [Left Arm] None Bladder Current Status Continent Bowel Current Status Continent Nutrition Current Status 100% of most meals Medication Current Status Understanding of medication regimen Physical Therapy: Current Status Bed Mobility Assistance Supervision Transfer Moblility Assistance Supervision,Contact Guard Assist Transfer/Bed Mobility Rolling Walker Recommended Devices Ambulation Assistance Supervision,Contact Guard Assist Ambulation Assistive Devices Rolling Walker Number of Feet Patient 150x2 Ambulated Stairs Assistance Contact Guard Assist Stairs Recommended Devices Two Rails Number of Stairs 2x2 Objective Comments patient demosntrates good overall ability in ascent and descent of stairs, but needs cuing for procedure. Occupational Therapy: Current Status Upper Body Dressing Supervision Lower Body Dressing Contact Guard Assist Bathing Contact Guard Assist Toileting Contact Guard Assist Toilet Transfer Contact Guard Assist Shower Transfer Supervision Eating Ind with Adaptive Equip Rec Therapy: Current Status Summary of Assessment and RT assessment complete and pt. is aware of RT Clinical Impression services. Pt. has been very talkative and engaged in leisure sessions, pt. states he likes to tell stories and has been open to continued leisure visits. Treatment Goals Pt. will engage in leisure activities while on the unit. Treatment Plan Provide RT services and encourage involvement. Social Work: Current Status Discharge Plan return home with home care svs and family support Potential for Family Training pt's is involved and supportive. family training is scheduled for 02/23 at 8am. Anticipated Discharge Home Destination Discharge With home care svs and family support Nutrition: Current Status Monitoring Pt s/p R hip fx and R hip hemiarthroplasty. Eating adequately on regular diet - generally 100% of meals, eating independently. regular formed BMs noted per stool record. Visited pt 02/19 and Coumadin/Vit K handout provided; will return for questions as needed. Full nutrition assessment to follow per protocol. Goals: Physical Therapy: Updated Goals Transfer/Bed Mobility Rolling Walker Recommended Devices Occupational Therapy: Initial Goals Goals to be Completed in (Days 7-10 days ) Upper Body Bathing Routine Modified Independent with Lower Body Bathing Routine Modified Independent with Upper Body Dressing Routine Independent Lower Body Dressing Routine Modified Independent with Toilet Hygeine and Clothing Modified Independent with Management Routine Toilet Transfer Routine Modified Independent with Tub Transfer Routine Modified Independent with Functional Transfers for ADL Modified Independent with Grooming Routine Independent Feeding Routine Modified Independent with Light Housekeeping Tasks Minimal Contact Assist Nursing: Goals Bladder Goal Independent Bowel Goal Independent Nutrition Goal 100% of all meals - independent Medication Goal Independent with medications Nutrition: Goals Intervention Goals 1. Intake will be adequate to promote post-op healing 2. Pt will maintain regular bowel pattern without constipation/diarrhea Social Work: Goals Discharge Plan return home with home care svs and family support Potential for Family Training pt's is involved and supportive. family training is scheduled for 02/23 at 8am. Anticipated Discharge Home Destination Discharge With home care svs and family support Care Plan: Care Plan ADL's - Improve/Maintain Start: 02/22/18 10:26 Freq: DAILY Status: Active Target: Protocol: Activity Type Activity Date Activity User E-Sign Co-Sign Detail Recorded Client Recorded Date Recorded By Document 02/22/18 10:26 [id number] 02/22/18 10:26 [id number] 02/22/18 10:26 PMRU Outcome: ADL's/ADL Transfers Orders/Interventions Occupational Therapy Evaluation & Treatment Device Yes Patient to receive OT 5x/wk for 60-120 Therex min/day Self Care Management Group Therapy Neuromuscular ReEducation UE/LE ADL's with Assist Yes ADL Transfers with Assist Yes Toileting: Transfers,Clothing Management Yes ,Hygeine w/Assist Light Kitchen/Laundry w/Assist Yes Progression Toward Outcome/Goals Progressing Outcome/Goals Met Pt continues to use AE for LB dressing. Difficulty recalling 2/3 THP. He is able to recall no bending forward, difficulty recalling no pigon toes and no crossing legs. Coping/Psych-Improve/Maintain Start: 02/17/18 22:03 Freq: QSHIFT Status: Active Target: Protocol: Activity Type Activity Date Activity User E-Sign Co-Sign Detail Recorded Client Recorded Date Recorded By Document 02/22/18 00:29 [id number] 02/22/18 00:30 [id number] 02/22/18 00:29 PMRU Outcome: Coping/Psychosocial Coping Outcome/Goals Verbalization of Acceptance of Rehab Admit Verbalization of Sense of Control Over Health Status Willingness to Participate in Treatment Plan and Basic Needs Psychosocial Outcome/Goals Maintain/ Improve Emotional Health Cooperate/ Participate in Plan Progression Toward Outcome/Goals - Progressing Coping Progression Toward Outcome/Goals - Progressing Psychosocial DVT Prophylaxis- Improve/Maintain Start: 02/17/18 22:03 Freq: QSHIFT Status: Active Target: Protocol: Activity Type Activity Date Activity User E-Sign Co-Sign Detail Recorded Client Recorded Date Recorded By Document 02/22/18 00:29 [id number] [id number] 02/22/18 00:30 02/22/18 00:29 PMRU Outcome: DVT Prophylaxis Outcome/Goals Remains Free of DVT Complies with DVT Prophylaxis /Treatment TEDS Stockings on Every AM, Off at HS Progression Toward Outcome/Goals Progressing Discharge Planning - Improve/Maintain Start: 02/17/18 22:03 Freq: DAILY Status: Active Target: Protocol: Activity Type Activity Date Activity User E-Sign Co-Sign Detail Recorded Client Recorded Date Recorded By Document 02/21/18 23:00 [id number] [id number] 02/22/18 00:28 [id number] 02/21/18 23:00 PMRU Outcome: Discharge Planning Update Patient Family No Outcome/Goals Demonstrates Understanding of Discharge Plan Progression Toward Outcome/Goals Progressing Education-Improve/Maintain Start: 02/17/18 22:03 Freq: QSHIFT Status: Active Target: Protocol: Activity Type Activity Date Activity User E-Sign Co-Sign Detail Recorded Client Recorded Date Recorded By Document 02/22/18 00:29 [id number] [email or web address] 02/22/18 00:30 [id number] 02/22/18 00:29 PMRU Outcome: Education Outcome/Goals Encourage Questions Progression Toward Outcome/Goals Progressing Mobility- Improve/Maintain Start: 02/17/18 22:03 Freq: DAILY Status: Active Target: Protocol: Activity Type Activity Date Activity User E-Sign Co-Sign Detail Recorded Client Recorded Date Recorded By Document 02/18/18 09:54 [id number] 02/18/18 09:54 [id number] 02/18/18 09:54 PMRU Outcome: Mobility Physical Therapy Evaluation and Yes Treatment Activity OOB with Assistance Yes WBAT Yes Device Yes: RW Assistance Yes Patient to be seen 5x/wk for 60-120 min/ Therex day for: Mobility Training Gait Training Balance Outcome/Goals Maintain/ Achieve Baseline Mobility Status Improve Mobility Status Demonstrates Proper Use of Assistive Devices Free from Complications of Immobility Bed Mobility Yes Transfers Yes Gait x ft Yes: 150 Up/Down Stairs Yes: 13 With HEP Yes Pain/Comfort- Improve/Maintain Start: 02/17/18 22:03 Freq: QSHIFT Status: Active Target: Protocol: Activity Type Activity Date Activity User E-Sign Co-Sign Detail Recorded Client Recorded Date Recorded By Document 02/22/18 00:29 [id number] 02/22/18 00:30 [id number] 02/22/18 00:29 PMRU Outcome: Pain/Comfort Outcome/Goals Demonstrates Knowledge and Use of Available Comfort Measures Achieves Acceptable Comfort/Pain Level as Determined by Patient/Condit Maintain Comfort Level Allowing Patient to Fully Participate in Rehab Progression Toward Outcome/Goals Progressing Safety- Improve/Maintain Start: 02/17/18 22:03 Freq: QSHIFT Status: Active Target: Protocol: Activity Type Activity Date Activity User E-Sign Co-Sign Detail Recorded Client Recorded Date Recorded By Document 02/22/18 00:29 [id number] 02/22/18 00:30 [id number] 02/22/18 00:29 PMRU Outcome: Safety Outcome/Goals Remain Free of Injury or Harm Cooperates with Safety Measures for Least Restrictive Environment Prevent Falls/ Injury Progression Toward Outcome/Goals Progressing Skin- Improve/Maintain Start: 02/17/18 22:03 Freq: QSHIFT Status: Active Target: Protocol: Activity Type Activity Date Activity User E-Sign Co-Sign Detail Recorded Client Recorded Date Recorded By Document 02/22/18 00:29 [id number] 02/22/18 00:30 [id number] 02/22/18 00:29 PMRU Outcome: Skin Skin Risk Level Medium Skin Orders Dressing Change Outcome/Goals Maintain/ Improve Skin Intergrity Surgical Incisions Healing Progression Toward Outcome/Goals Progressing Medicine Note: Length of Stay: 3 days Anticipated Discharge Destination: Home Tentative Discharge Date: 02/25/18 Discharged to: Home
--- NOTE | 2018-02-22 16:16 | PN ---
Progress Note Date of Service: 02/22/18 Note: NIDIA BARNARD was visited. Therapy notes read and reviewed. He was discussed in interdisciplinary team rounds. He is doing well. Pain controlled. Moving well. Current Medications: Active Medications Generic Name Dose Route Start Last Admin Trade Name Freq PRN Reason Stop Dose Admin Acetaminophen 650 mg 02/17/18 15:25 02/21/18 12:24 Tylenol Tab* PO 650 mg Q6H PRN Administration FEVER/PAIN Hydrocodone Bitart/Acetaminophen 1 tab 02/17/18 15:34 02/22/18 13:06 [place] 5-325 Tab* PO 1 tab Q4H PRN Administration PAIN - MODERATE TO SEVERE Hydrocodone Bitart/Acetaminophen 2 tab 02/17/18 15:35 02/22/18 08:31 [place] 5-325 Tab* PO 2 tab Q4H PRN Administration PAIN - SEVERE Atorvastatin Calcium 10 mg 02/17/18 17:00 02/21/18 17:45 Lipitor* PO 10 mg 1700 MEMO Administration Bupropion HCl 150 mg 02/17/18 17:00 02/22/18 08:28 Wellbutrin Sr Tab* PO 150 mg 0800,1700 MEMO Administration Citalopram Hydrobromide 20 mg 02/18/18 09:00 02/22/18 08:28 Celexa Tab* PO 20 mg DAILY MEMO Administration Docusate Sodium 100 mg 02/17/18 21:00 02/22/18 08:36 Colace Cap* PO Not Given BID MEMO Magnesium Hydroxide 30 ml 02/17/18 15:25 Milk Of Magnesia Liq* PO Q6H PRN CONSTIPATION Omeprazole 20 mg 02/18/18 06:00 02/22/18 05:29 Prilosec Cap* PO 20 mg 0600 MEMO Administration Prednisone 7.5 mg 02/18/18 09:00 02/22/18 08:28 Deltasone Tab* PO 7.5 mg DAILY MEMO Administration Senna 2 tab 02/17/18 21:00 02/21/18 20:19 Senokot Tab* PO Not Given BEDTIME MEMO Warfarin Sodium 5 mg 02/21/18 17:00 02/21/18 17:45 Coumadin Tab(*) PO 5 mg DAILY@1700 MEMO Administration Protocol Vital Signs: Vital Signs Temp Pulse Resp BP Pulse Ox 98.6 F 60 16 86/54 95 02/22/18 15:23 02/22/18 15:23 02/22/18 15:23 02/22/18 15:23 02/22/18 16:10 Exam: LUNGS: Clear bilaterally HEART: reg rhythm ABDOMEN: Soft, +BS EXTREMITIES: Right hip wound C/D/I, some ecchymosis near wound NEUROLOGIC: Alert and oriented. Motor 5/5 except RLE Assessment/Plan: 1. Right Hip Fracture, S/P HAP: WBAT. PT/OT. They want to follow with a local ortho 2. Right Knee Inflammation after Lyme Disease: Prednisone 3. Depression: Celexa/Wellbutrin 4. DVT Prophylaxis: Coumadin, increased to 5 mg 5. Advanced Directives: Full Code 02/22/18 16:16
[2018-02-22] MEDS: Warfarin TAB(*) 5 MG PO SCH (17:15)
[2018-02-22] MEDS: Atorvastatin* 10 MG TAB PO SCH (17:15)
[2018-02-22] MEDS: Senna TAB PO SCH (19:06)
[2018-02-23] MEDS: Omeprazole CAP* 20 MG PO SCH (05:19)
[2018-02-23 05:37] LABS: INR 1.82 (0.77-1.02)
[2018-02-23] MEDS: Citalopram TAB* 20 MG PO SCH (07:45)
[2018-02-23] MEDS: buPROPion SR TAB.SR* 150 MG PO SCH ×2 (07:45→16:57)
[2018-02-23] MEDS: HYDROcodone/ACETAMIN 5-325 MG* 1 TAB PO PRN ×3 (07:45→20:52)
[2018-02-23] MEDS: Docusate CAP* 100 MG PO SCH ×2 (08:22→20:51)
[2018-02-23] MEDS: predniSONE TAB* 5 MG PO SCH (08:22)
[2018-02-23] MEDS: Acetaminophen TAB* 325 MG PO PRN (12:18)
[2018-02-23] MEDS: Atorvastatin* 10 MG TAB PO SCH (16:57)
[2018-02-23] MEDS: Warfarin TAB(*) 6 MG PO SCH (16:57)
--- NOTE | 2018-02-23 19:45 | PN ---
Progress Note Note: NIDIA BARNARD was visited. Therapy notes read and reviewed. He was able to do a flight of stairs today and seems to be doing very well. INR down slightly to 1.82, will increase Coumadin to 6 mg Current Medications: Active Medications Generic Name Dose Route Start Last Admin Trade Name Freq PRN Reason Stop Dose Admin Acetaminophen 650 mg 02/17/18 15:25 02/23/18 12:18 Tylenol Tab* PO 650 mg Q6H PRN Administration FEVER/PAIN Hydrocodone Bitart/Acetaminophen 1 tab 02/17/18 15:34 02/23/18 13:18 [place] 5-325 Tab* PO 1 tab Q4H PRN Administration PAIN - MODERATE TO SEVERE Hydrocodone Bitart/Acetaminophen 2 tab 02/17/18 15:35 02/23/18 07:45 [place] 5-325 Tab* PO 2 tab Q4H PRN Administration PAIN - SEVERE Atorvastatin Calcium 10 mg 02/17/18 17:00 02/23/18 16:57 Lipitor* PO 10 mg 1700 MEMO Administration Bupropion HCl 150 mg 02/17/18 17:00 02/23/18 16:57 Wellbutrin Sr Tab* PO 150 mg 0800,1700 MEMO Administration Citalopram Hydrobromide 20 mg 02/18/18 09:00 02/23/18 07:45 Celexa Tab* PO 20 mg DAILY MEMO Administration Docusate Sodium 100 mg 02/17/18 21:00 02/23/18 08:22 Colace Cap* PO Not Given BID MEMO Magnesium Hydroxide 30 ml 02/17/18 15:25 Milk Of Magnesia Liq* PO Q6H PRN CONSTIPATION Omeprazole 20 mg 02/18/18 06:00 02/23/18 05:19 Prilosec Cap* PO 20 mg 0600 MEMO Administration Prednisone 7.5 mg 02/18/18 09:00 02/23/18 08:22 Deltasone Tab* PO 7.5 mg DAILY MEMO Administration Senna 2 tab 02/17/18 21:00 02/22/18 19:06 Senokot Tab* PO Not Given BEDTIME MEMO Warfarin Sodium 6 mg 02/23/18 17:00 02/23/18 16:57 Coumadin Tab(*) PO 6 mg DAILY@1700 MEMO Administration Protocol Vital Signs: Vital Signs Temp Pulse Resp BP Pulse Ox 98.9 F 53 18 101/55 94 02/23/18 15:02 02/23/18 15:02 02/23/18 17:22 02/23/18 15:02 02/23/18 17:23 Lab Results: Laboratory Results - last 24 hr 02/23/18 05:11 INR (Anticoag Therapy) 1.82 H Exam: LUNGS: Clear bilaterally HEART: reg rhythm ABDOMEN: Soft, +BS EXTREMITIES: Right hip wound C/D/I, some ecchymosis near wound NEUROLOGIC: Alert and oriented. Motor 5/5 except RLE Assessment/Plan: 1. Right Hip Fracture, S/P HAP: WBAT. PT/OT. They want to follow with a local ortho 2. Right Knee Inflammation after Lyme Disease: Prednisone 3. Depression: Celexa/Wellbutrin 4. DVT Prophylaxis: Coumadin, increased to 6 mg 5. Advanced Directives: Full Code 02/23/18 19:47
[2018-02-23] MEDS: Senna TAB PO SCH (20:52)
[2018-02-24] MEDS: Omeprazole CAP* 20 MG PO SCH (05:36)
[2018-02-24] MEDS: Citalopram TAB* 20 MG PO SCH (08:55)
[2018-02-24] MEDS: Docusate CAP* 100 MG PO SCH ×3 (08:55→20:51)
[2018-02-24] MEDS: buPROPion SR TAB.SR* 150 MG PO SCH ×2 (08:55→16:52)
[2018-02-24] MEDS: predniSONE TAB* 5 MG PO SCH (08:56)
[2018-02-24] MEDS: HYDROcodone/ACETAMIN 5-325 MG* 1 TAB PO PRN ×2 (08:58→20:52)
[2018-02-24] MEDS: Warfarin TAB(*) 6 MG PO SCH (16:52)
[2018-02-24] MEDS: Atorvastatin* 10 MG TAB PO SCH (16:52)
[2018-02-24] MEDS: Senna TAB PO SCH (20:52)
--- NOTE | 2018-02-24 22:07 | PN ---
Progress Note Date of Service: 02/24/18 Note: NIDIA BARNARD was visited. Therapy notes read and reviewed. He feels good. Left hip wound clean and closed. No drainage, mepilex dressing removed. Have sent a referral to [facility] for followup Current Medications: Active Medications Generic Name Dose Route Start Last Admin Trade Name Freq PRN Reason Stop Dose Admin Acetaminophen 650 mg 02/17/18 15:25 02/23/18 12:18 Tylenol Tab* PO 650 mg Q6H PRN Administration FEVER/PAIN Hydrocodone Bitart/Acetaminophen 1 tab 02/17/18 15:34 02/24/18 20:52 [place] 5-325 Tab* PO 1 tab Q4H PRN Administration PAIN - MODERATE TO SEVERE Hydrocodone Bitart/Acetaminophen 2 tab 02/17/18 15:35 02/24/18 08:58 [place] 5-325 Tab* PO 2 tab Q4H PRN Administration PAIN - SEVERE Atorvastatin Calcium 10 mg 02/17/18 17:00 02/24/18 16:52 Lipitor* PO 10 mg 1700 MEMO Administration Bupropion HCl 150 mg 02/17/18 17:00 02/24/18 16:52 Wellbutrin Sr Tab* PO 150 mg 0800,1700 MEMO Administration Citalopram Hydrobromide 20 mg 02/18/18 09:00 02/24/18 08:55 Celexa Tab* PO 20 mg DAILY MEMO Administration Docusate Sodium 100 mg 02/17/18 21:00 02/24/18 20:51 Colace Cap* PO Not Given BID MEMO Magnesium Hydroxide 30 ml 02/17/18 15:25 Milk Of Magnesia Liq* PO Q6H PRN CONSTIPATION Omeprazole 20 mg 02/18/18 06:00 02/24/18 05:36 Prilosec Cap* PO 20 mg 0600 MEMO Administration Prednisone 7.5 mg 02/18/18 09:00 02/24/18 08:56 Deltasone Tab* PO 7.5 mg DAILY MEMO Administration Senna 2 tab 02/17/18 21:00 02/24/18 20:52 Senokot Tab* PO 2 tab BEDTIME MEMO Administration Warfarin Sodium 6 mg 02/23/18 17:00 02/24/18 16:52 Coumadin Tab(*) PO 6 mg DAILY@1700 MEMO Administration Protocol Vital Signs: Vital Signs Temp Pulse Resp BP Pulse Ox 98.9 F 54 14 108/62 98 02/24/18 15:48 02/24/18 15:48 02/24/18 20:52 02/24/18 16:49 02/24/18 16:54 Exam: LUNGS: Clear bilaterally HEART: reg rhythm ABDOMEN: Soft, +BS EXTREMITIES: Right hip wound C/D/I, some ecchymosis near wound NEUROLOGIC: Alert and oriented. Motor 5/5 except RLE Assessment/Plan: 1. Right Hip Fracture, S/P HAP: WBAT. PT/OT. Arranging follow up with local ortho 2. Right Knee Inflammation after Lyme Disease: Prednisone 3. Depression: Celexa/Wellbutrin 4. DVT Prophylaxis: Coumadin, increased to 6 mg 5. Advanced Directives: Full Code 02/24/18 22:07
[2018-02-25 05:18] VITALS: BP 131/67
[2018-02-25] MEDS: Omeprazole CAP* 20 MG PO SCH (05:19)
[2018-02-25] MEDS: Citalopram TAB* 20 MG PO SCH (07:30)
[2018-02-25] MEDS: buPROPion SR TAB.SR* 150 MG PO SCH (07:30)
[2018-02-25] MEDS: HYDROcodone/ACETAMIN 5-325 MG* 1 TAB PO PRN (07:30)
[2018-02-25] MEDS: predniSONE TAB* 5 MG PO SCH (07:31)
[2018-02-25] MEDS: Docusate CAP* 100 MG PO SCH (07:31)
[2018-02-25 07:54] LABS: ABS Basophils 0.1 10^3/ul (0-0.2); ABS Eosinophils 0.1 10^3/ul (0-0.6); ABS Lymphocytes 1.5 10^3/ul (1.0-4.8); ABS Monocytes 0.4 10^3/ul (0-0.8); ABS Nucleated RBC 0 10^3/ul; Hematocrit 36 % (42-52); Lymphocyte % 25.4 % (25-47); Mean Corpuscular HGB Conc 34 g/dl (31-36); Mean Corpuscular Hemoglobin 30 pg (27-31); Mean Corpuscular Volume 90 fL (80-94); Mean Platelet Volume 7.4 um3 (7.4-10.4); Nucleated Red Blood Cells % 0; Platelet Count 348 10^3/ul (150-450); Red Blood Count 3.96 10^6/ul (4.00-5.40); Red Cell Distribution Width 14 % (10.5-15); White Blood Count 6.1 10^3/ul (3.5-10.8)
[2018-02-25 08:04] LABS: INR 2.03 (0.77-1.02)
[2018-02-25 08:12] LABS: EGFR Non-African American 68.3 (>60)
--- NOTE | 2018-02-25 10:14 | PN ---
Progress Note Date of Service: 02/25/18 Note: NIDIA BARNARD was visited. Nursing and therapy notes read and reviewed. No chest pain, shortness of breath or abdominal pain. A little anxious about going home. Current Medications: Active Medications Generic Name Dose Route Start Last Admin Trade Name Freq PRN Reason Stop Dose Admin Acetaminophen 650 mg 02/17/18 15:25 02/23/18 12:18 Tylenol Tab* PO 650 mg Q6H PRN Administration FEVER/PAIN Hydrocodone Bitart/Acetaminophen 1 tab 02/17/18 15:34 02/24/18 20:52 [place] 5-325 Tab* PO 1 tab Q4H PRN Administration PAIN - MODERATE TO SEVERE Hydrocodone Bitart/Acetaminophen 2 tab 02/17/18 15:35 02/25/18 07:30 [place] 5-325 Tab* PO 2 tab Q4H PRN Administration PAIN - SEVERE Atorvastatin Calcium 10 mg 02/17/18 17:00 02/24/18 16:52 Lipitor* PO 10 mg 1700 MEMO Administration Bupropion HCl 150 mg 02/17/18 17:00 02/25/18 07:30 Wellbutrin Sr Tab* PO 150 mg 0800,1700 MEMO Administration Citalopram Hydrobromide 20 mg 02/18/18 09:00 02/25/18 07:30 Celexa Tab* PO 20 mg DAILY MEMO Administration Docusate Sodium 100 mg 02/17/18 21:00 02/25/18 07:31 Colace Cap* PO Not Given BID MEMO Magnesium Hydroxide 30 ml 02/17/18 15:25 Milk Of Magnesia Liq* PO Q6H PRN CONSTIPATION Omeprazole 20 mg 02/18/18 06:00 02/25/18 05:19 Prilosec Cap* PO 20 mg 0600 MEMO Administration Prednisone 7.5 mg 02/18/18 09:00 02/25/18 07:31 Deltasone Tab* PO 7.5 mg DAILY MEMO Administration Senna 2 tab 02/17/18 21:00 02/24/18 20:52 Senokot Tab* PO 2 tab BEDTIME MEMO Administration Warfarin Sodium 6 mg 02/23/18 17:00 02/24/18 16:52 Coumadin Tab(*) PO 6 mg DAILY@1700 MEMO Administration Protocol Vital Signs: Vital Signs Temp Pulse Resp BP Pulse Ox 98.5 F 54 15 131/67 96 02/25/18 05:18 02/25/18 05:18 02/25/18 09:16 02/25/18 05:18 02/25/18 07:30 Lab Results: Laboratory Results - last 24 hr 02/25/18 02/25/18 02/25/18 07:41 07:41 07:41 WBC 6.1 RBC 3.96 L Hgb 12.0 L Hct 36 L MCV 90 MCH 30 MCHC 34 RDW 14 Plt Count 348 MPV 7.4 Neut % (Auto) 65.5 Lymph % (Auto) 25.4 Gage % (Auto) 7.2 H Eos % (Auto) 1.0 Baso % (Auto) 0.9 Absolute Neuts (auto) 4.0 Absolute Lymphs (auto) 1.5 Absolute Monos (auto) 0.4 Absolute Eos (auto) 0.1 Absolute Basos (auto) 0.1 Absolute Nucleated RBC 0 Nucleated RBC % 0 INR (Anticoag Therapy) 2.03 H Sodium 140 Potassium 3.9 Chloride 106 Carbon Dioxide 27 Anion Gap 7 BUN 18 Creatinine 1.05 Est GFR ( Amer) 82.7 Est GFR (Non-Af Amer) 68.3 BUN/Creatinine Ratio 17.1 Glucose 115 H Calcium 9.1 Total Bilirubin 0.50 AST 14 ALT 21 Alkaline Phosphatase 63 Total Protein 6.3 L Albumin 3.5 Globulin 2.8 Albumin/Globulin Ratio 1.3 Exam: GEN: no acute distress. Alert and appropriate. LUNGS: Clear bilaterally HEART: regular rate and rhythm ABDOMEN: Soft, +BS, non-tender, non-distended EXTREMITIES: Right hip wound C/D/I. No edema. NEUROLOGIC: Motor 5/5 except RLE secondary to pain Assessment/Plan: 1. Right Hip Fracture, S/P HAP: WBAT. PT/OT. Arranging follow up with local ortho. I called [facility] ortho this morning and expect to hear back this afternoon regarding appt. 2. Right Knee Inflammation after Lyme Disease: Prednisone 3. Depression: Celexa/Wellbutrin 4. DVT Prophylaxis: Coumadin 6 mg. Protime/INR QMon/Thurs. 5. Advanced Directives: Full Code 6. Dispo: discharge home today. 02/25/18 10:12
--- NOTE | 2018-02-26 07:27 | DS ---
CC: Dr. Lobo; [facility]; [facility], Orthopedics Department REHABILITATION DISCHARGE: DATE OF ADMISSION: 02/17/18 DATE OF DISCHARGE: 02/25/18 PRIMARY CARE PROVIDER: Dr. Lobo. REASON FOR ADMISSION: Right hip fracture, status post hemiarthroplasty. HISTORY OF PRESENT ILLNESS: For full details of his acute hospitalization leading up to his admission at [facility] in [place], please see the note dictated by Dr. Marquez on 02/17/18. Briefly, he is status post right hip hemiarthroplasty, which resulted after a fall when he was at his camp in the [facility] on 02/13/18. Pain was treated with hydrocodone and he was put on Coumadin for DVT prophylaxis. REHABILITATION COURSE: During his time on the [facility], he has continued using hydrocodone for pain management. He was counseled on weaning off of this medication as tolerated and its responsible use. He understands this completely. He also has continued using prednisone 7.5 mg q. 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 He has not had any medical complications. He participated well with physical therapy. At the time of discharge, he is independent with bed mobility, transfers using a rolling walker, and ambulation using a rolling walker up to 200 feet. He is also independent doing a flight of stairs with 2 rails. He also participated well with occupational therapy. At the time of discharge, he is independent with functional transfers, dressing using adaptive equipment, toileting using a rolling walker, and bathing using adaptive equipment. His came and will assist him as needed. After discharge, he will continue to need INRs checked every Wednesday and until he is at least 3 weeks post-op. INR results are going to be drawn by visiting nursing services and sent to Dr. Lobo. Because the patient did not want to make a trip to [place] for surgical followup, we have sent a referral to [facility] with the operative information and are awaiting confirmation that they will follow up with him locally. He does not have any sutures or saadia in place. The incision was glued with a mesh overlying it. It has remained clean, dry, and intact. DISCHARGE CONDITION: Fair. DISCHARGE DISPOSITION: Home with family support. DISCHARGE MEDICATIONS: 1. Atorvastatin 10 mg q. day. 2. Bupropion SR 150 mg b.i.d. 3. Citalopram 20 mg q. day. 4. Docusate 100 mg b.i.d. 5. [place] 5/325 one to tablets q.4 hours p.r.n., not to exceed 4 tablets per day. 6. Prednisone 7.5 mg q. day. 7. Warfarin currently at 6 mg q. day and his INR today was 2.03. DISCHARGE DIAGNOSES: 1. Right hip fracture, status post hemiarthroplasty. 2. Hyperlipidemia. 3. History of Lyme disease with chronic inflammation of the right knee. 4. Depression. FOLLOWUP: 1. A referral has been sent to [facility] for [facility] including PT and INRs every Wednesday and to be sent to Dr. Lobo, physical therapy, and home health aide. 2. Follow up with Dr. Lobo in 1 to 2 weeks. 3. Hopefully, he will be following up with [facility] in 4 to 7 days. Otherwise he will need to return to the Orthopedic surgeon at [facility]. [id number]/[facility] #: [id number] YOLANDA
--- NOTE | 2018-02-26 08:43 | PN ---
Progress Note Date of Service: 02/26/18 Note: NIDIA BARNARD was called by me. He was discharged yesterday. I did not see confirmation that he had an orthopedic f/u locally. His told me he was given an appt for 03/02 at [facility] orthopedics. She was reminded to also make f/ u with Dr. Lobo for the next 1-2 weeks. Also she should expect a call from [facility] to schedule an initial visit and labs. If she does not hear from them by Wednesday she was instructed to call [facility]. Vital Signs:
== END 2018-02-25 16:05 | disposition home health service (06) | DRG 561 ==
LOC: PMRU 13:55
PROVIDERS: ADMIT Physical Medicine & Rehabilitation; ATTEND Physical Medicine & Rehabilitation
PROC: F07Z5ZZ Bed Mobility Treatment (ICD-10-PCS; principal; 2018-02-17)
PROC: F07Z9ZZ Gait Training/Functional Ambulation Treatment (ICD-10-PCS; 2018-02-17)
PROC: F07Z8ZZ Transfer Training Treatment (ICD-10-PCS; 2018-02-17)
PROC: F08Z0ZZ Bathing/Showering Techniques Treatment (ICD-10-PCS; 2018-02-17)
PROC: F08Z1ZZ Dressing Techniques Treatment (ICD-10-PCS; 2018-02-17)
PROC: F08Z3ZZ Feeding/Eating Treatment (ICD-10-PCS; 2018-02-17)
DX: S72.091D Other fracture of head and neck of right femur, subsequent encounter for closed fracture with routine healing (principal); W18.09XD Striking against other object with subsequent fall, subsequent encounter; E78.5 Hyperlipidemia, unspecified; F32.9 Major depressive disorder, single episode, unspecified; M13.861 Other specified arthritis, right knee; Z79.52 Long term (current) use of systemic steroids; Z79.899 Other long term (current) drug therapy
CPT/HCPCS: 36415; 80053; 81003; 81015; 85025; 85610; 87077; 87086; A9270-GY; J7512

== ENCOUNTER 2018-10-19 14:32 | Emergency (ER) | payer MEDICARE, BC ==
--- NOTE | 2018-10-19 14:59 | UC ---
Minor Trauma HPI - HPI Summary HPI Summary: 78 year old male present for head injury and laceration to his right hand. States he was doing some landscaping at his home shoveling some stones when he slipped, lost his balance and fell onto a concrete sidewalk first coming down on his outstretched right hand and then striking his forehead. No loss of consciousness. He is unsure if he cut his hand on a rock or if the skin split open from the impact. Bleeding controlled prior to arrival with direct pressure. Tetanus status unknown. States hand is tender but has full ROM of the fingers and wrist and sensation is intact. Right hand dominant. Denies headache , dizziness, visual disturbances, weakness, numbness, or tingling of extremities , chest pain, palpitations, or other injury. - History of Current Complaint Chief Complaint: UCLaceration Stated Complaint: HEAD/HAND Time Seen by Provider: 10/19/18 14:54 Hx Obtained From: Patient Pain Intensity: 4 - Allergies/Home Medications Allergies/Adverse Reactions: Allergies Allergy/AdvReac Type Severity Reaction Status Date / Time No Known Allergies Allergy Verified 06/28/17 12:08 Home Medications: Home Medications Pravastatin Sodium [Pravachol] 40 mg PO DAILY 10/19/18 [History Confirmed ] predniSONE TAB* [Deltasone TAB*] 5 mg PO DAILY 10/19/18 [History] PMH/Surg Hx/FS Hx/Imm Hx - Additional Past Medical History Additional PMH: PMR Endocrine History: Dyslipidemia Psychological History: Depression - Surgical History Surgical History: Yes Surgery Procedure, Year, and Place: Tonsils. KIDNEY STONES. BILATERAL CATARACTS, rt hip repair - Family History Known Family History: Positive: Non-Contributory - Social History Occupation: Retired Lives: With Family Alcohol Use: 4-5 times a week Alcohol Amount: one glass wine Substance Use Type: None Smoking Status (MU): Never Smoked Tobacco - Immunization History Most Recent Influenza Vaccination: Fall 2016 Most Recent Pneumonia Vaccination: in the past Review of Systems All Other Systems Reviewed And Are Negative: Yes Constitutional: Positive: Negative Skin: Positive: Other - See HPI Eyes: Negative: Blurred Vision, Diplopia, Photophobia ENT: Positive: Negative Respiratory: Positive: Negative Cardiovascular: Positive: Negative Gastrointestinal: Positive: Negative Genitourinary: Positive: Negative Motor: Negative: Weakness Neurovascular: Negative: Decreased Sensation Musculoskeletal: Negative: Decreased ROM Neurological: Negative: Headache, Weakness, Paresthesia, Numbness Is Patient Immunocompromised?: No Physical Exam - Summary Physical Exam Summary: GENERAL APPEARANCE: Well developed, well nourished, alert and cooperative, and appears to be in no acute distress. HEAD: Normocephalic. Superficial abrasion noted to right forehead. EYES: Conjunctiva clear. No drainage. PERRL, EOM intact. Vision is grossly intact. EARS: External auditory canals and tympanic membranes clear, hearing grossly intact. NOSE: No nasal discharge. THROAT: Pharynx normal. No tonsilar inflammation, swelling, exudate, or lesions. Uvula midline. NECK: Neck supple, non-tender without lymphadenopathy. CARDIAC: Normal S1 and S2. No S3, S4 or murmurs. Rhythm is regular. There is no peripheral edema, cyanosis or pallor. Extremities are warm and well perfused. Capillary refill is less than 2 seconds. Peripheral pulses intact. LUNGS: Clear to auscultation without rales, rhonchi, wheezing or diminished breath sounds. ABDOMEN: Positive bowel sounds. Soft, nondistended, nontender. No guarding or rebound. No masses or hepatosplenomegally. MUSKULOSKELETAL: ROM intact to all extremities. No joint erythema or tenderness. Normal muscular development. Normal gait. EXTREMITIES: Right hand with full ROM. No gross deformity. Sensation and circulation intact. BACK: Examination of the spine reveals normal posture, no spinal deformity or tenderness, decreased range of motion or muscular spasm. NEUROLOGICAL: Strength and sensation symmetric and intact throughout. Reflexes 2 + throughout. SKIN: Linear laceration approximately 5-6 cm in length that extends into the subcutaneous tissue to the palm of the right hand. Bleeding controlled. No FB or tendon injury noted. Triage Information Reviewed: Yes Vital Signs: Initial Vital Signs Temp 97.6 F 10/19/18 14:43 Pulse 53 10/19/18 14:43 Resp 18 10/19/18 14:43 BP 129/70 10/19/18 14:43 Pulse Ox 96 10/19/18 14:43 Vital Signs Reviewed: Yes Procedures - Procedure Summary Procedure Summary: Procedure note: Laceration repair palm right hand Informed consent was obtained before procedure started and the appropriate timeout was taken. The skin was prepped with Betadine. Local anesthesia was achieved using 7 ml of lidocaine 1% without epinephrine. The wound was copiously irrigated. The wound was then explored and no FB or ligamental injury noted. The area was then draped in the usual sterile fashion. The wound margins were brought into good alignment and the wound was was closed with a continuous running suture using 5-0 Ethilon with a total of 19 throws. Laceration length after closer 6.0 cm. Estimated blood loss was minimal. A dressing was applied to the area and he was placed in a velcro cock up wrist splint by the RN. Sensation and circulation normal pre- and post-application. Anticipatory guidance, as well as standard post-procedure care was discussed with patient. Return precautions were given. The patient tolerated the procedure well without complications. Patient is to follow up in 2-3 days for evaluation of the laceration and then in 14 days for suture removal. - Splinting Right Upper Extremity Location: Right hand Pre-Made Type: velcro Splint: Cockup wrist Pre-Proc Neuro Vasc Exam: normal Post-Proc Neuro Vasc Exam: normal Diagnostics - Radiology No standard instances Radiology Interpretation Completed By: Radiologist Summary of Radiographic Findings: Order Information: CT BRAIN WO. Accession Number: [id number]. CPT: 30836. HISTORY: head injury s/p fall. COMPARISONS: October 19, 2017. TECHNIQUE: Multiple contiguous axial CT scans were obtained of the head without intravenous contrast. FINDINGS: HEMORRHAGE/INFARCT: There is no hemorrhage or acute infarct. MASSES/SHIFT: There is no mass or shift. EXTRA -AXIAL SPACES: There are no extra-axial fluid collections. SULCI AND VENTRICLES : The sulci and ventricles are normal in size and position for the patient's stated age. CEREBRUM: There is mild hypoattenuation of the periventricular and subcortical white matter. BRAINSTEM: There are no focal parenchymal abnormalities. CEREBELLUM: There are no focal parenchymal abnormalities. VESSELS: The vessels are grossly normal. PARANASAL SINUSES: The paranasal sinuses are clear. ORBITS: The orbits are unremarkable. BONES AND SOFT TISSUE : No bone or soft tissue abnormalities are noted. OTHER: None. IMPRESSION: NO ACUTE INTRACRANIAL PATHOLOGY. Order Information: HAND - RIGHT MINIMUM 3 VIEWS. Accession Number: [id number]. CPT: 96834. INDICATION: Right hand injury. TECHNIQUE: 4 views of the right hand were obtained. FINDINGS: There is diffuse soft tissue swelling. The bones are in normal alignment. No fracture is seen. No foreign body is seen. 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 IMPRESSION: NO EVIDENCE FOR FRACTURE OR RADIOPAQUE FOREIGN BODY. Minor Trauma Course/Dx - Course Course Of Treatment: 78 year old male present for head injury and laceration to his right hand. States he was doing some landscaping at his home shoveling some stones when he slipped, lost his balance and fell onto a concrete sidewalk first coming down on his outstretched right hand and then striking his forehead. No loss of consciousness. He is unsure if he cut his hand on a rock or if the skin split open from the impact. Bleeding controlled prior to arrival with direct pressure. Tetanus status unknown. States hand is tender but has full ROM of the fingers and wrist and sensation is intact. Right hand dominant. Denies headache , dizziness, visual disturbances, weakness, numbness, or tingling of extremities , chest pain, palpitations, or other injury. Afebrile. Vital signs stable. Exam revealed an alert older adult male with a superficial abrasion to the right forehead and linear laceration approximately 5-6 cm in length that extends into the subcutaneous tissue to the palm of the right hand. Bleeding controlled. Right hand with full ROM. No gross deformity. Sensation and circulation intact. Neurologically intact. Non-contrast CT brain showed no intracranial pathology. Right hand x-ray showed no fracture or foreign body. The laceration was irrigated by the RN with sterile saline prior to wound repair and then again by myself after wound was adequately anesthetized. I thoroughly explored the wound and no foreign body or tendon injury was noted. The laceration was then closed using a continuous running suture with 5-0 Ethilon with a total of 19 throws. Total length after the repair was 6 cm. A clean gauze dressing was applied by the RN and the patient was placed in a velcro cock-up wrist splint. Sensation and circulation intact pre- and post-application. Patient is to return in 2-3 days for wound check then in 14 days for suture removal. I will place him prophylactically on Augmentin 875 mg BID x 5 days. Wound care, anticipatory guidance, and warning symptoms reviewed with patient. Verbalizes understanding and agrees with plan of care. - Differential Dx/Diagnosis Differential Diagnosis/HQI/PQRI: Abrasion(s), Hematoma(s), Laceration(s), Other - Closed head injury Provider Diagnosis: Closed head injury without loss of consciousness, Forehead abrasion, Laceration of right hand Discharge - Sign-Out/Discharge Documenting (check all that apply): Patient Departure All imaging exams completed and their final reports reviewed: Yes - Discharge Plan Condition: Stable Disposition: HOME Prescriptions: Amoxicillin/Clavulanate TAB* [Augmentin TAB 875*] 875 mg PO BID #10 tab Patient Education Materials: Care For Your Stitches (ED), Laceration (ED), Head Injury (ED), Abrasion (ED) Referrals: Ric Lobo MD [Primary Care Provider] - Additional Instructions: The CT scan of your head and x-ray of your right hand were both normal. The laceration of your right hand was repaired today using a continuous running suture. Be sure to leave the dressing that was applied in the clinic in place for the next 24 hours. Is important that he keep this clean and dry. After 24 hours you may remove the dressing and shower and wash her hands as usual. He should apply a small amount of antibiotic ointment such as bacitracin to the wound and keep it covered with a dressing. The dressing will need to be changed at least once a day or any time it becomes wet or soiled. Wear the splint that was applied in the clinic today for the next several days to provide support and allow the wound to heal. Your tetanus was updated today. Be sure to notify your primary care providers that they may update their records. Start Augmentin 875 mg twice a day for 5 days to help prevent infection. Take this with food to avoid upset stomach. Be sure to take the entire course. Use acetaminophen (Tylenol) or ibuprofen (Advil, Motrin) according to directions as needed for pain. Return here in 2-3 days to have the wound rechecked. The sutures were placed today will need to be removed in 14 days. You may return here or to your primary care provider to have this done. Watch for signs of infection including fever greater than 100.5 F, pain that is not managed with pain medication, redness that spreads, swelling of the hand, or pus draining from the wound. Seek immediate medical attention should any of these occur. - Billing Disposition and Condition Condition: STABLE Disposition: Home - Attestation Statements Provider Attestation: I was available for consult. This patient was seen by the FREDDY. The patient was not presented to, seen by, or examined by me. -Ryan
[2018-10-19] MEDS ORDERED: Tetan/Diph/Pertus SYR(Tdap)* 0.5 ML SYR(BOOSTRIX) use SYR IM ONE (15:06)
[2018-10-19] MEDS ORDERED: Lidocaine 1%* 5 ML VIAL INJ ONE (15:23)
[2018-10-19 17:35] VITALS: BP 124/68
== END 2018-10-19 17:20 | disposition home or self-care (01) ==
LOC: UCEAST 14:32
DX: S09.90XA Unspecified injury of head, initial encounter (principal); S00.81XA Abrasion of other part of head, initial encounter; S61.411A Laceration without foreign body of right hand, initial encounter; W01.0XXA Fall on same level from slipping, tripping and stumbling without subsequent striking against object, initial encounter; Y93.H2 Activity, gardening and landscaping; Y92.007 Garden or yard of unspecified non-institutional (private) residence as the place of occurrence of the external cause; Z23 Encounter for immunization; M35.3 Polymyalgia rheumatica; E78.5 Hyperlipidemia, unspecified; F32.9 Major depressive disorder, single episode, unspecified
CPT/HCPCS: 12002; 70450; 90471; 90715; 99212; G0463

== ENCOUNTER 2018-10-21 15:12 | Emergency (ER) | payer MEDICARE, BC ==
[2018-10-21 15:44] VITALS: BP 99/63
--- NOTE | 2018-10-21 15:51 | UC ---
Laceration HPI - HPI Summary HPI Summary: 78 yo male presents for wound recheck. He had 19 sutures placed to right hand 2 days ago. States has had little to no pain. Has been changing the dressing daily. No fevers. Has had some bruising and swelling to the hand today. - History Of Current Complaint Chief Complaint: UCWounds Stated Complaint: WOUND RECHECK Time Seen by Provider: 10/21/18 15:51 Hx Obtained From: Patient Laceration Location: Hand Pain Intensity: 1 - Allergies/Home Medications Allergies/Adverse Reactions: Allergies Allergy/AdvReac Type Severity Reaction Status Date / Time No Known Allergies Allergy Verified 10/21/18 15:44 Home Medications: Home Medications Erich/D3/Mag11/Zinc/System Operator/Cheko/Bor [Caltrate 600+D Plus] 1 tab PO 10/21/18 [History] Hubert-3 Fatty Acids/Fish Oil [Fish Oil 1,000 mg Softgel] 1 each PO 10/21/18 [ History] PMH/Surg Hx/FS Hx/Imm Hx Endocrine History: Dyslipidemia Psychological History: Anxiety, Depression - Surgical History Surgical History: Yes Surgery Procedure, Year, and Place: Tonsils. KIDNEY STONES. BILATERAL CATARACTS, rt hip repair - Family History Known Family History: Positive: Non-Contributory - Social History Lives: With Family Alcohol Use: Weekly Alcohol Amount: one glass wine Substance Use Type: None Smoking Status (MU): Never Smoked Tobacco - Immunization History Most Recent Influenza Vaccination: Fall 2016 Most Recent Pneumonia Vaccination: in the past Review of Systems All Other Systems Reviewed And Are Negative: Yes Constitutional: Positive: Negative Skin: Positive: Other - Right hand stitches in place Respiratory: Positive: Negative Cardiovascular: Positive: Negative Neurological: Positive: Negative Psychological: Positive: Negative Physical Exam - Summary Physical Exam Summary: GENERAL: NAD. WDWN. No pain distress. SKIN: RIGHT HAND: Palm with [address], one suture has popped through the skin and there is slight dissociation of the everted wound edges, but is otherwise healing well. NTTP. No erythema, bleeding, or discharge. Hand is mildly edematous with scatter ecchymosis. NECK: Supple. Nontender. No lymphadenopathy. CHEST: No accessory muscle use. Breathing comfortably and in no distress. CV: Pulses intact. Cap refill <2seconds MSK: RIGHT HAND: Unable to fully extend fingers due to hand wound, but only a slight decreased ROM. NEURO: Alert. PSYCH: Age appropriate behavior. Triage Information Reviewed: Yes Vital Signs: Initial Vital Signs Temp 98.2 F 10/21/18 15:40 Pulse 57 10/21/18 15:40 Resp 18 10/21/18 15:40 BP 99/63 10/21/18 15:40 Pulse Ox 95 10/21/18 15:40 Vital Signs Reviewed: Yes Laceration Course/Dx - Course/Dx Course Of Treatment: Wound appears to be healing well. Advised to keep hand elevated with ice to reduce edema. Wound was dressed in the clinic today and advised to keep changing dressing daily and using splint until stitches are removed. - Diagnosis Provider Diagnosis: Laceration of right hand, Visit for wound check Discharge - Sign-Out/Discharge Documenting (check all that apply): Patient Departure All imaging exams completed and their final reports reviewed: No Studies - Discharge Plan Condition: Stable Disposition: HOME Referrals: Ric Lobo MD [Primary Care Provider] - Additional Instructions: If you develop a fever, shortness of breath, chest pain, new or worsening symptoms - please call your PCP or go to the ED immediately. 1) Your wound appears to be healing well 2) Continue to change the dressing daily until your stitches are removed 3) Apply ice and elevate your hand multiple times a day to reduce swelling - Billing Disposition and Condition Condition: STABLE Disposition: Home - Attestation Statements Provider Attestation: This patient was not seen by me. I was available for consult.
== END 2018-10-21 16:15 | disposition home or self-care (01) ==
LOC: UCEAST 15:12
DX: Z48.00 Encounter for change or removal of nonsurgical wound dressing (principal); S61.411D Laceration without foreign body of right hand, subsequent encounter; W45.8XXD Other foreign body or object entering through skin, subsequent encounter
CPT/HCPCS: 99212; G0463

== ENCOUNTER 2018-11-05 12:01 | Emergency (ER) | payer MEDICARE, BC ==
--- NOTE | 2018-11-05 12:12 | UC ---
HPI Wound/Suture Re-check - HPI Summary HPI Summary: 78 y/o male presents to the urgent care requesting stitch removal from laceration of his RT palm that was placed here at the urgent care on 10/19/2018. Pt reports he was supposed to come for suture removal about 4 days ago, but he though he needed more time. His RT hand still mildly swollen, but his pain at touch is minimum abut 1/10. He denies discharge, fever, numbness or tingling sensation over he RT hand, SOB, chest pain, abdominal pain, N/v/d. He finished the full course of Augmentin PO - History Of Current Complaint Stated Complaint: STITCHES REMOVED Time Seen by Provider: 11/05/18 12:06 Hx Obtained From: Patient Onset/Duration: Sudden Onset, Lasting Days - 18 days ago, Resolved - healing well laceration w/ 19 stiches on RT palm Severity: Mild Pain Intensity: 1 Pain Scale Used: 0-10 Numeric Surgery Date: 10/19/18 - RT palm laceration repair - Allergies/Home Medications Allergies/Adverse Reactions: Allergies Allergy/AdvReac Type Severity Reaction Status Date / Time No Known Allergies Allergy Verified 10/21/18 15:44 PMH/Surg Hx/FS Hx/Imm Hx Previously Healthy: Yes Endocrine History: Dyslipidemia Psychological History: Depression - Surgical History Surgical History: Yes Surgery Procedure, Year, and Place: Tonsils. KIDNEY STONES. BILATERAL CATARACTS, rt hip repair - Family History Known Family History: Positive: Cardiac Disease, Non-Contributory - Social History Occupation: Retired Lives: With Family Alcohol Use: Weekly Alcohol Amount: one glass wine Substance Use Type: None Smoking Status (MU): Never Smoked Tobacco - Immunization History Most Recent Influenza Vaccination: Fall 2016 Most Recent Pneumonia Vaccination: in the past Review of Systems All Other Systems Reviewed And Are Negative: Yes Constitutional: Positive: Negative Skin: Positive: Other - laceration repair on RT palm healing well w/ mild pain and swelling Eyes: Positive: Negative ENT: Positive: Negative Respiratory: Positive: Negative Cardiovascular: Positive: Negative Gastrointestinal: Positive: Negative Genitourinary: Positive: Negative Motor: Positive: Negative Neurovascular: Positive: Negative Musculoskeletal: Positive: Negative Neurological: Positive: Negative Psychological: Positive: Negative Is Patient Immunocompromised?: No Physical Exam Triage Information Reviewed: Yes Appearance: Well-Appearing, No Pain Distress, Well-Nourished - male Vital Signs Reviewed: Yes Eye Exam: Normal ENT Exam: Normal ENT: Positive: Normal ENT inspection Dental Exam: Normal Neck exam: Normal Respiratory Exam: Normal Cardiovascular Exam: Normal Abdominal Exam: Normal Bowel Sounds: Positive: Present Musculoskeletal Exam: Normal Musculoskeletal: Positive: Strength Intact - RT hand, ROM Intact - RT hand and full cascade for all fingers Neurological Exam: Normal Psychological Exam: Normal Skin Exam: Normal Skin: Positive: Other - Skin: Positive:RT palm at the mid side w. a linear laceration repair w/ [address]. Wound healing well with crusting and moderate granulation over, non tender to palpation. FROM of RT hand and sull cascade fo fingers, mild swelling observed on dorsal side of hand. sensation intact, capillary refill brisk, and pulses WNL. Course/Dx - Course Course Of Treatment: 78 y/o male presents to the urgent care requesting stitch removal from laceration of his RT palm that was placed here at the urgent care on 10/19/2018. Pt reports he was supposed to come for suture removal about 4 days ago, but he though he needed more time. His RT hand still mildly swollen, but his pain at touch is minimum abut 1/10. He denies discharge, fever, numbness or tingling sensation over he RT hand, SOB, chest pain, abdominal pain, N/v/d. He finished the full course of Augmentin PO. hx obtained. Wound healing well with crusting and moderate granulation over, non tender to palpation, [address] 19 sutures removed w/o any difficulty. Pt tolerated well procedure. wound cleaned with sterile water and bacitracin applied over and cover with sterile gauze placed by me. Pt advised if redness, pain or fever develops to return to the urgent care or f/u with PCP for further treatment. Pt's BP elevated today, advised to decrease salt in diet and monitor BP, and f/u with PCP. Pt given referral w/ Sport medicine orthopedic DR for further management if his hand continues w/ swelling. Pt understood and agreed with plan of care - Differential Dx - Laceration/Wound Differential Diagnoses: Cellulitis, Healing Wound, Suture Removal, Tenosynovitis - Diagnosis Provider Diagnosis: Encounter for removal of sutures Discharge - Sign-Out/Discharge Documenting (check all that apply): Patient Departure - d/c home All imaging exams completed and their final reports reviewed: No Studies - Discharge Plan Condition: Stable Disposition: HOME Prescriptions: Bacitracin OINTMENT* 1 applic TOPICAL BID #1 tube Patient Education Materials: Acute Wound Care (ED) Referrals: Ric Lobo MD [Primary Care Provider] - If Needed [facility] [Provider Group] - If Needed Additional Instructions: 1-Please apply topical antibiotic over the wound when the steri strips come off. Keep wound clean and dry 2-Take Ibuprofen PO or Tylenol PO q6-8hrs prn for pain or swelling. Avoid strenuous exercise w/ your hand, keep it elevated, avoid too much flexion. Please F/u w/ sports medicine Orthopedic Dr if you develop RT hand pain or swelling doesn't improve. 4- If you develop fever or redness around your wound despite applying topical oint please return to the urgent care or f/u w/ your PCP for further management. - Billing Disposition and Condition Condition: STABLE Disposition: Home
[2018-11-05 12:13] VITALS: BP 108/70
== END 2018-11-05 12:49 | disposition home or self-care (01) ==
LOC: UCEAST 12:01
DX: S61.411D Laceration without foreign body of right hand, subsequent encounter (principal); R03.0 Elevated blood-pressure reading, without diagnosis of hypertension; X58.XXXD Exposure to other specified factors, subsequent encounter
CPT/HCPCS: 99211; G0463

== ENCOUNTER → 2019-03-23 05:24 | Day surgery (SDC) | payer MEDICARE, BC ==
--- NOTE | 2019-03-22 13:42 | HP ---
HISTORY AND PHYSICAL: DATE OF ADMISSION/SURGERY: 03/23/19 [facility]: [facility] DATE OF OFFICE VISIT: 03/20/19 SURGEON: Chelsea Noel MD * (DICTATED BY FUAD SMITH) PROCEDURES: 1. Left knee arthroscopy with partial meniscectomy. 2. Possible chondroplasty. 3. Possible synovectomy. CHIEF COMPLAINT: Left knee pain. PAST MEDICAL HISTORY: BPH. PAST SURGICAL HISTORY: Right hip hemiarthroplasty and tonsillectomy. CURRENT MEDICATIONS: 1. Prednisone 2.5 mg daily. 2. Caltrate. 3. Atorvastatin calcium 10 mg a day. 4. Wellbutrin 300 mg daily. 5. Citalopram hydrobromide 20 mg a day. 6. Fish oil. 7. Ibuprofen 600 mg every 6 hours as needed. 8. Aleve as needed. ALLERGIES: No known drug allergies. FAMILY HISTORY: Breast cancer and coronary artery disease. SOCIAL HISTORY: He is a 78-year-old gentleman who lives with his . He does not smoke or use drugs. He uses occasional alcohol. REVIEW OF SYSTEMS: A complete 14-point review of systems was reviewed with the patient. It was all negative, but not contributory. PHYSICAL EXAMINATION GENERAL: He is a well-developed, well-nourished, in no acute distress. VITAL SIGNS: He stands 76 inches tall, weighs 255 pounds. His blood pressure 116/72, his heart rate is 60. HEENT: Normocephalic, atraumatic. NECK: Supple. No palpable lymph nodes. PULMONARY: The lungs are clear to auscultation bilaterally. CARDIO: Regular rate and rhythm. Strong S1, S2. ABDOMEN: Soft, nontender, nondistended. NEUROLOGIC: He is alert and oriented x3. MUSCULOSKELETAL: Left lower extremity: The skin is intact. There is no open wounds or abrasions. There is moderate effusion of the left knee, some tenderness over the medial joint line. He has positive Honey's, positive Apley's, negative Jamison's. Range of motion is 5 to 120 degrees of flexion. His calf is soft and nontender. He is able to dorsiflex and plantarflex and has a 2+ dorsalis pedis pulse. ASSESSMENT AND PLAN: Mr. Ramos is a 78-year-old gentleman with a left knee pain secondary to medial meniscus tear. He is elected to proceed with left knee arthroscopy with partial meniscectomy, possible chondroplasty, possible synovectomy, and possible plica excision. Surgery is scheduled for 03/23/[address] Noel discussed the risks and benefits of the surgery at today's visit and all of his questions were answered. He will follow up with Dr. Noel in 2 weeks after the surgery. FUAD SMITH [id number]/CPS #: [id number] MTDD
[~2019-03-23 05:24] MED LIST: Acetaminophen TAB* 325 MG ONE; Acetaminophen TAB* 325 MG PO PRN; Buffered Lidocaine 1% SYRIN* 1 ML/SYRINGE INTRADERM ONE; Dexamethasone IV* 4 MG/ML 1 ML (4 MG) ONE; DiMENhydriNATE IV* 50 MG/ML VIAL ONE; EPINEPHRINE 1 MG/ML 1 ML VIAL ONE; Famotidine IV* 10 MG/ML 2 ML (20 mg) IV ONE; Famotidine IV* 10 MG/ML 2 ML (20 mg) ONE; Glycopyrrolate IV* 0.2 MG/ML 1 ML VIAL ONE; Ketorolac INJ* 30 MG/ML 1 ML VIAL ONE; Lactated Ringers 1000 ML Bag* 1,000 ML IV SCH; Lidocaine 1% MPF ** 5 ML VIAL ONE; Lidocaine 2% PF * 5 ML VIAL ONE; Midazolam* 1 MG/ML 5 ML VIAL (5 MG) ONE; Naloxone* 0.4 MG/ML 1 ML VIAL IV PRN; Ondansetron INJ* 2 MG/ML VIAL ONE; Propofol* 10 MG/ML 20 ML BTL ONE; ROPIVACAINE 5 MG/ML 30 ML BTL (0.5%) ONE; Ropivacaine 0.2% * 2 MG/ML VIAL ONE; ceFAZolin 2 GM in NS PREMIX(*) 2 GM/100 ML BAG IVPB ONE; fentaNYL* 50 MCG/ML 2 ML VIAL (100 MCG VIAL) ONE; methylPREDNISolone ACETATE 80* 80 MG/ML 1 ML VIAL ONE
[2019-03-23 09:49] VITALS: BP 138/80
--- NOTE | 2019-03-24 01:22 | OP ---
DATE OF OPERATION: 03/23/19 - [facility] DATE OF : 38 ATTENDING SURGEON: Chelsea Noel MD. BENCH PATTERNMAKER METAL: FUAD Anderson. Ms. Benavidez did help throughout the procedure with preparation of the leg, wound retraction, manipulation of the knee, and wound closure. ANESTHESIOLOGIST: Dr. Varner. ANESTHESIA: General. PRE-OP DIAGNOSES: Left knee medial meniscal tear, [id number] osteoarthritis. POST-OP DIAGNOSES: Left knee medial meniscal tear, moderate osteoarthritis, anterior synovitis. OPERATIVE PROCEDURE: Left knee arthroscopy with partial medial meniscectomy and anterior synovectomy. COMPLICATIONS: None. SPECIMEN: None. ESTIMATED BLOOD LOSS: Less than 25 cc. BRIEF HISTORY/INDICATION: Mr. Ramos is a 78-year-old gentleman with acute onset of left knee pain and mechanical symptoms. Conservative treatment failed to relieve his pain. MRI confirmed a medial meniscal tear. Because of continued pain and decreased quality of life, he elected to undergo left knee arthroscopy with partial medial meniscectomy. Informed consent was obtained from the patient. He understood the risks of surgery included, but were not limited to, bleeding, infection, damage to nearby structures, continued pain, need for further surgery, intraoperative complications, retear of the meniscus, progression of arthritis, stroke, heart attack, blood clot, and . He wished to proceed. INTRAOPERATIVE FINDINGS: Intraoperatively, the patient was noted to have a significant amount of anterior synovitis. He had an anterior as well as posterior medial meniscal tear. These were complex type tears. There was some grade 3 and 4 Outerbridge cartilage changes in the patellofemoral and medial compartment. DESCRIPTION OF PROCEDURE: Mr. Ramos was identified in the preanesthesia unit. His left lower extremity was marked as the correct operative side. Informed consent was signed and placed in the chart. The patient was taken to the operating room and placed under anesthesia without complication. Left lower extremity was prepped and draped in the usual sterile fashion. Preop time -out was made to correctly identify the patient, side and site. Appropriate perioperative antibiotics were given within 1 hour of incision. A 0.5 cm anterolateral portal incision was made with a 10-blade and carried down through the capsule. A trocar was introduced. The light and water sources were turned on and there was immediate visualization of the suprapatellar pouch. A tour of the knee joint was performed. Suprapatellar pouch showed no obvious abnormalities. Patellofemoral compartment showed some grade 3 and 4 Outerbridge cartilage changes. The medial gutter showed no significant plica or loose body. There was a significant amount of anterior synovitis. The medial compartment showed some grade 3 and 4 Outerbridge cartilage changes along the medial femoral condyle. Medial meniscal tear was visible both anteriorly and posteriorly. ACL and PCL appeared to be intact. The knee was placed in the [id number] position. There was no obvious tear of the lateral meniscus. There were minimal degenerative changes in the lateral compartment. Lateral gutter showed no obvious loose bodies. Under direct visualization, a medial portal incision was made with a 15-blade. A probe was introduced and a second tour of the knee joint was performed. There were no additional findings. Shaver and radiofrequency ablation wand were used to perform anterior synovectomy. The inflamed tissue was carefully excised from the anterior joint line. This improved visualization significantly. Shaver and straight biter were then used to perform partial medial meniscectomy. The anterior meniscal tear was excised in the white-red zone. Posteromedial meniscal tear was carefully excised from the red-white zone as well. This was a more complex type tear. Smooth border of the medial meniscus was obtained. Radiofrequency ablation wand was then used to further smooth the border of the medial meniscus. Further probing of the medial meniscus showed no additional tears. The knee was copiously irrigated with sterile saline. All instruments were removed. The incisions were closed using 3-0 nylon suture. Intraarticular injection of 80 mg of Depo-Medrol and 6 cc of 1% Xylocaine was placed in the knee joint. The patient's incisions were covered with Xeroform, 4x4s, and Webril. Rebel wrap and cold pack were placed over this. The patient's anesthesia was reversed without difficulty. He was taken to the PACU in stable condition. Intended weightbearing will be weightbearing as tolerated. Intended DVT prophylaxis will be aspirin. for suture removal. [id number]/CPS #: [id number] YOLANDA
== END | disposition home or self-care (01) ==
LOC: OR 05:24
PROVIDERS: ATTEND Orthopaedic Surgery Adult Reconstructive Orthopaedic Surgery
DX: S83.242A Other tear of medial meniscus, current injury, left knee, initial encounter (principal); M17.12 Unilateral primary osteoarthritis, left knee; M65.862 Other synovitis and tenosynovitis, left lower leg; X58.XXXA Exposure to other specified factors, initial encounter; Y92.9 Unspecified place or not applicable; E78.5 Hyperlipidemia, unspecified; Z87.442 Personal history of urinary calculi; N40.0 Benign prostatic hyperplasia without lower urinary tract symptoms; M35.3 Polymyalgia rheumatica; F32.9 Major depressive disorder, single episode, unspecified
CPT/HCPCS: A9270-GY; J0690; J1040; J1100; J1240; J1885; J2250; J2405; J2704; J2795; J3010

== ENCOUNTER 2021-07-24 12:11 | Observation (INO) ==
[~2021-07-24 12:11] MED LIST changes: -Acetaminophen TAB* 325 MG ONE; -Acetaminophen TAB* 325 MG PO PRN; +Buffered Lidocaine 1% SYRIN 1 ml INTRADERM ONE; -Buffered Lidocaine 1% SYRIN* 1 ML/SYRINGE INTRADERM ONE; -Dexamethasone IV* 4 MG/ML 1 ML (4 MG) ONE; +DiMENhydriNATE IV 50 mg/ml 1 ml VIAL IV PUSH PRN; -DiMENhydriNATE IV* 50 MG/ML VIAL ONE; -EPINEPHRINE 1 MG/ML 1 ML VIAL ONE; -Famotidine IV* 10 MG/ML 2 ML (20 mg) IV ONE; -Famotidine IV* 10 MG/ML 2 ML (20 mg) ONE; -Glycopyrrolate IV* 0.2 MG/ML 1 ML VIAL ONE; -Ketorolac INJ* 30 MG/ML 1 ML VIAL ONE; -Lactated Ringers 1000 ML Bag* 1,000 ML IV SCH; +Lactated Ringers 1000 ml BAG 1,000 ML IV SCH; -Lidocaine 1% MPF ** 5 ML VIAL ONE; -Lidocaine 2% PF * 5 ML VIAL ONE; -Midazolam* 1 MG/ML 5 ML VIAL (5 MG) ONE; +Naloxone 0.4 mg VIAL 0.4 mg/ml 1 ml VIAL IV PRN; -Naloxone* 0.4 MG/ML 1 ML VIAL IV PRN; -Ondansetron INJ* 2 MG/ML VIAL ONE; -Propofol* 10 MG/ML 20 ML BTL ONE; -ROPIVACAINE 5 MG/ML 30 ML BTL (0.5%) ONE; -Ropivacaine 0.2% * 2 MG/ML VIAL ONE; -ceFAZolin 2 GM in NS PREMIX(*) 2 GM/100 ML BAG IVPB ONE; -fentaNYL* 50 MCG/ML 2 ML VIAL (100 MCG VIAL) ONE; -methylPREDNISolone ACETATE 80* 80 MG/ML 1 ML VIAL ONE
[2021-07-24] MEDS ORDERED: ceFAZolin 1 GM ADVAN 1 GM ADDV.VIAL IVPB ONE (12:46)
[2021-07-24 13:16] LABS: INR 1.03 (0.86-1.15)
[2021-07-24] MEDS ORDERED: ROPIVACAINE 5 MG/ML 30 ML BTL (0.5%) ONE (14:02)
[2021-07-24] MEDS ORDERED: Propofol 10 MG/ML 20 ML BTL ONE ×2 (14:17→18:31)
[2021-07-24] MEDS ORDERED: Lactulose 30 ml UDC PO PRN (18:26)
[2021-07-24] MEDS ORDERED: diPHENhydraMINE 25 mg TAB PO PRN (18:26)
[2021-07-24] MEDS ORDERED: diPHENhydraMINE IV 50 MG/ML 1 ml VIAL (BENADRYL) IV PRN (18:26)
[2021-07-24] MEDS ORDERED: Morphine 2 MG/ML SYRINGE IV PRN (18:26)
[2021-07-24] MEDS ORDERED: Magnesium Hydroxide LIQ 30 ML UDC PO PRN (18:26)
[2021-07-24] MEDS ORDERED: Ropivacaine 5 MG/ML 20 ML VIAL 0.5% (100 MG) ONE (18:30)
[2021-07-24] MEDS ORDERED: Lidocaine 2% PF 5 ML VIAL ONE (18:31)
[2021-07-24] MEDS ORDERED: Midazolam 2 mg/2 ml VIAL 1 mg/ml 2 ml VIAL (2 mg) ONE (18:31)
[2021-07-24] MEDS ORDERED: Rocuronium 50 mg VIAL 10 mg/ml 5 ml VIAL (50 mg) ONE ×2 (18:31→20:24)
[2021-07-24] MEDS ORDERED: fentaNYL 100 mcg/2 ml 50 MCG/ML VIAL ONE (18:31)
[2021-07-24] MEDS ORDERED: Prochlorperazine 5 mg/ml 2 ml VIAL (10 mg) IV PRN (18:33)
[2021-07-24] MEDS ORDERED: Lactated Ringers 1000 ml BAG 1,000 ML IV SCH (19:00)
[2021-07-24] MEDS ORDERED: Succinylcholine 200 mg VIAL 20 mg/ml 10 ml VIAL (200 mg) ONE (19:09)
[2021-07-24] MEDS ORDERED: EPHEDrine (Pressors) 50 MG/ML VIAL ONE ×2 (19:16→20:29)
[2021-07-24] MEDS ORDERED: Dexamethasone IV 4 MG/ML VIAL 1 ml VIAL ONE (19:42)
[2021-07-24] MEDS ORDERED: Phenylephrine 40 mcg/mL 10mL (400mcg) SYRINGE ONE (19:47)
[2021-07-24] MEDS ORDERED: Ondansetron 4 mg VIAL 2 MG/ML 2 ml VIAL ONE (20:37)
[2021-07-24] MEDS ORDERED: Acetaminophen IV 1 GM/100ML 100 ML IV ONE (20:38)
[2021-07-24] MEDS: Magnesium Hydroxide LIQ 30 ML UDC PO SCH (23:37)
[2021-07-25] MEDS: ceFAZolin 1 GM ADVAN 1 GM in NS 0.9% 50 ML 50 ML IVPB SCH ×2 (03:44→11:35)
[2021-07-25 06:25] LABS: Hematocrit 39 % (42-52); Hemoglobin 13.2 g/dL (14.0-18.0); Mean Platelet Volume 8.7 fL (7.4-10.4); Platelet Count 153 10^3/uL (150-450)
[2021-07-25 06:46] LABS: Calcium 8.6 mg/dL (8.6-10.3); Potassium 4.5 mmol/L (3.5-5.0); eGFR CKD-EPI 61.6 (>60)
[2021-07-25] MEDS ORDERED: Vitamin THERAPEUTIC TAB PO SCH (09:00)
[2021-07-25] MEDS: Magnesium Hydroxide LIQ 30 ML UDC PO SCH (09:16)
[2021-07-25 13:24] VITALS: BP 98/62
== END 2021-07-25 15:20 | disposition home or self-care (01) ==
LOC: OR 12:11 → SSU 12:11
PROVIDERS: ADMIT Orthopaedic Surgery Adult Reconstructive Orthopaedic Surgery; ATTEND Orthopaedic Surgery Adult Reconstructive Orthopaedic Surgery

== ENCOUNTER 2021-07-26 12:34 | Inpatient (IN) ==
[2021-07-26] MEDS ORDERED: NS 0.9% 1000 ml BAG 1,000 ML IV ONE (13:33)
[2021-07-26 13:56] LABS: ABS Lymphocytes 0.9 10^3/ul (1.0-4.8); ABS Monocytes 0.8 10^3/ul (0-0.8); ABS Neutrophils 4.7 10^3/ul (1.5-7.7); Eosinophil % 0.5 %; Hematocrit 36 % (42-52); Hemoglobin 11.9 g/dL (14.0-18.0); Lymphocyte % 13.5 %; Mean Corpuscular HGB Conc 33 g/dL (31-36); Mean Corpuscular Hemoglobin 31 pg (27-31); Mean Corpuscular Volume 94 fL (80-94); Mean Platelet Volume 8.4 fL (7.4-10.4); Nucleated Red Blood Cells % 0.1; Platelet Count 138 10^3/uL (150-450); Red Cell Distribution Width 14 % (10-15); White Blood Count 6.3 10^3/uL (3.5-10.8)
[2021-07-26 14:05] LABS: Activated Partial Thrombo Time 29.4 seconds (26.0-38.0); INR 1.09 (0.86-1.15)
[2021-07-26 14:16] LABS: Albumin 3.6 g/dL (3.2-5.2); Albumin/Globulin Ratio 1.6 (1-3); C Reactive Protein 27.99 mg/L (<8.01); Calcium 8.4 mg/dL (8.6-10.3); Globulin 2.3 g/dL (2-4); Potassium 4.5 mmol/L (3.5-5.0); Total Bilirubin 0.9 mg/dL (0.2-1.0); Total Protein 5.9 g/dL (6.4-8.9); eGFR CKD-EPI 59.8 (>60)
[2021-07-26 14:17] LABS: Troponin I 0.02 ng/mL (<0.03)
[2021-07-26 14:43] LABS: Urine Appearance Clear; Urine Bilirubin Negative (Negative); Urine Blood Negative (Negative); Urine Color Yellow; Urine Glucose Negative (Negative); Urine Ketones Negative (Negative); Urine Nitrite Negative (Negative); Urine Protein Negative (Negative); Urine Specific Gravity 1.016 (1.002-1.030); Urine Urobilinogen Negative (Negative)
[2021-07-26] MEDS ORDERED: HYDROcodone/ACETAMIN 5/325 mg TAB PO ONE (17:53)
[2021-07-26] MEDS: Acetaminophen IV 1 GM/100ML 100 ML IV SCH (23:47)
[2021-07-27] MEDS: Acetaminophen IV 1 GM/100ML 100 ML IV SCH ×3 (05:33→22:50)
[2021-07-27 08:18] LABS: Urine Creatinine Concentration 35.48 mg/dL
[2021-07-27] MEDS: CMCS:OMEGA-3 FATTY ACID 1000 mg(NF) PO SCH (08:50)
[2021-07-27] MEDS: Multivitamins/Minerals TAB PO SCH (08:51)
[2021-07-27 10:38] LABS: ABS Eosinophils 0.1 10^3/ul (0-0.6); ABS Monocytes 0.7 10^3/ul (0-0.8); ABS Neutrophils 3.5 10^3/ul (1.5-7.7); Eosinophil % 2.5 %; Hematocrit 37 % (42-52); Hemoglobin 12.5 g/dL (14.0-18.0); Lymphocyte % 18.3 %; Mean Corpuscular HGB Conc 34 g/dL (31-36); Mean Corpuscular Hemoglobin 31 pg (27-31); Mean Corpuscular Volume 93 fL (80-94); Mean Platelet Volume 8.2 fL (7.4-10.4); Platelet Count 149 10^3/uL (150-450); Red Blood Count 3.97 10^6 /uL (4.18-5.48); Red Cell Distribution Width 14 % (10-15); White Blood Count 5.3 10^3/uL (3.5-10.8)
[2021-07-27 10:53] LABS: Calcium 8.6 mg/dL (8.6-10.3); Magnesium 2.1 mg/dL (1.9-2.7); eGFR CKD-EPI 76.1 (>60)
[2021-07-27] MEDS: Polyethylene Glycol 3350 17 GM PACKET PO PRN (10:56)
[2021-07-27] MEDS: Senna TAB 8.6 mg TAB PO PRN (21:01)
[2021-07-27] MEDS: Magnesium Hydroxide LIQ 30 ML UDC PO SCH (21:01)
[2021-07-28 05:51] LABS: ABS Eosinophils 0.1 10^3/ul (0-0.6); ABS Lymphocytes 1.4 10^3/ul (1.0-4.8); ABS Monocytes 0.6 10^3/ul (0-0.8); ABS Neutrophils 2.3 10^3/ul (1.5-7.7); Eosinophil % 3.1 %; Hematocrit 34 % (42-52); Hemoglobin 11.7 g/dL (14.0-18.0); Mean Corpuscular HGB Conc 34 g/dL (31-36); Mean Corpuscular Hemoglobin 32 pg (27-31); Mean Corpuscular Volume 93 fL (80-94); Mean Platelet Volume 8.3 fL (7.4-10.4); Nucleated Red Blood Cells % 0.1; Platelet Count 143 10^3/uL (150-450); Red Cell Distribution Width 14 % (10-15); White Blood Count 4.4 10^3/uL (3.5-10.8)
[2021-07-28] MEDS: Acetaminophen IV 1 GM/100ML 100 ML IV SCH (06:01)
[2021-07-28 06:05] LABS: Calcium 8.7 mg/dL (8.6-10.3); Potassium 4.4 mmol/L (3.5-5.0); eGFR CKD-EPI 60.4 (>60)
[2021-07-28] MEDS: Magnesium Hydroxide LIQ 30 ML UDC PO SCH (09:16)
[2021-07-28] MEDS: Polyethylene Glycol 3350 17 GM PACKET PO PRN (09:17)
[2021-07-28] MEDS: Senna TAB 8.6 mg TAB PO PRN (09:18)
[2021-07-28] MEDS: Multivitamins/Minerals TAB PO SCH (09:18)
[2021-07-28] MEDS: CMCS:OMEGA-3 FATTY ACID 1000 mg(NF) PO SCH (09:19)
[2021-07-28 17:39] VITALS: BP 108/63
== END 2021-07-28 18:45 | disposition home or self-care (01) | DRG 560 ==
LOC: ED 12:34 → SUATTDRO 20:23 → EDHOLD 20:23 → SSU 22:28
PROVIDERS: ADMIT Internal Medicine; ATTEND Hospitalist